=== PATIENT | male | born 1985 | race Caucasian/White ===

== ENCOUNTER 2016-10-31 13:01 | Emergency (ER) | payer BC ==
[2016-10-31 15:09] LABS: Urine Bilirubin Negative (Negative); Urine Glucose Negative (Negative); Urine Nitrite Negative (Negative)
[2016-10-31 16:07] LABS: Hematocrit 48 % (42-52); Hemoglobin 16.5 g/dl (14.0-18.0); Mean Corpuscular HGB Conc 34 g/dl (31-36); Mean Corpuscular Hemoglobin 29 pg (27-31); Mean Corpuscular Volume 85 fL (80-94); Mean Platelet Volume 7 um3 (7.4-10.4); Red Blood Count 5.71 10^6/ul (4.0-5.4); Red Cell Distribution Width 13 % (10.5-15); White Blood Count 10.9 10^3/ul (3.5-10.8)
[2016-10-31 16:36] LABS: ALT 21 U/L (7-52); AST 24 U/L (13-39); Albumin 4.7 g/dL (3.2-5.2); Alkaline Phosphatase 57 U/L (34-104); Anion Gap 9 mmol/L (2-11); BUN/Creatinine Ratio 7.6 (8-20); Blood Urea Nitrogen 8 mg/dL (6-24); CO2 Carbon Dioxide 26 mmol/L (22-32); Calcium 9.6 mg/dL (8.6-10.3); Chloride 102 mmol/L (101-111); EGFR African American 104.6 (>60); EGFR Non-African American 81.3 (>60); Globulin 2.7 g/dL (2-4); Glucose 88 mg/dL (70-100); Lipase 25 U/L (11.0-82.0); Potassium 3.6 mmol/L (3.5-5.0); Sodium 137 mmol/L (133-145); Total Protein 7.4 g/dL (6.4-8.9)
[2016-10-31 17:04] LABS: Alcohol < 10 mg/dL (<10)
--- NOTE | 2016-10-31 19:17 | RAD ---
INDICATION: Left upper quadrant pain COMPARISON: CT abdomen pelvis dated January 25, 2016 with findings consistent with constipation. TECHNIQUE: 2 views the abdomen were obtained. FINDINGS: There are no acute bony or soft tissue abnormalities. A large amount of stool is noted overlying the colon. There are no pathologically dilated loops of bowel. There are no obvious coarse calcifications overlying the expected location of the bilateral collecting systems or ureters. IMPRESSION: IN THE CORRECT CLINICAL SETTING RADIOGRAPHIC FINDINGS COULD BE COMPATIBLE WITH CONSTIPATION.
[2016-10-31 19:48] VITALS: BP 136/80
--- NOTE | 2016-11-01 22:32 | ED ---
Benjamin Sotelo Adam, scribed for Pato Monk MD on 10/31/16 at 1504 . Abdominal Pain/Male - HPI Summary HPI Summary: Pt is a 31 year old male presenting with abdominal pain. He states that the pain is generalized but worse in the LUQ. For the past 2 weeks it has been constant and growing progressively worse. Palpation aggravates the pain. Breathing does not affect the pain. He also states that his stool has been floating for the past 2 weeks. He also c/o upper back pain and itchy skin. He denies fever, sweats, chills, testicular pain, penile discharge, hematuria, blood in the stool, and black stool. He has been moving his bowels regularly in the morning and sometimes in the afternoon as well. Pt has PMHx of interstitial cystitis for 7 years and he presents with redness in his lower abdomen which he states is from using ice to alleviate the pain. He had a colonoscopy done once during which he states that they noticed some inflammation. - History of Current Complaint Chief Complaint: EDAbdPain Stated Complaint: UPPER LT ABD PAIN Time Seen by Provider: 10/31/16 14:36 Hx Obtained From: Patient Onset/Duration: Gradual Onset, Lasting Weeks, Still Present Timing: Constant Severity Initially: Moderate Severity Currently: Moderate Pain Intensity: 4 Pain Scale Used: 0-10 Numeric Location: Discrete At: LUQ Radiates: No Aggravating Factor(s): Other: - Palpation Alleviating Factor(s): Nothing Associated Signs And Symptoms: Positive: Back Pain, Other - Floating stool, itchy skin - Allergies/Home Medications Allergies/Adverse Reactions: Allergies Allergy/AdvReac Type Severity Reaction Status Date / Time Cefaclor [From [facility]] Allergy Unknown Verified 01/25/16 04:23 Reaction Details PMH/Surg Hx/FS Hx/Imm Hx Endocrine/Hematology History: Denies: Hx Diabetes Cardiovascular History: Denies: Hx Congestive Heart Failure, Hx Hypertension History: Denies: Hx Renal Disease Infectious Disease History: No Infectious Disease History: Denies: Traveled Outside the [place] in Last 30 Days - Family History Known Family History: Positive: None - Reviewed and noncontributory - Social History Occupation: Employed Full-time Lives: With Family - Alcohol Use: Occasionally Hx Substance Use: No Substance Use Type: Reports: None Hx Tobacco Use: Yes Smoking Status (MU): Former Smoker Review of Systems Negative: Fever, Chills Negative: Erythema Negative: Sore Throat Negative: Chest Pain Negative: Shortness Of Breath, Cough Positive: Abdominal Pain, Other - Floating stool. Negative: Vomiting, Nausea Negative: dysuria, hematuria Positive: Other - Back pain. Negative: Edema Positive: Other - Itchiness. Negative: Rash Neurological: Other - Negative dizziness All Other Systems Reviewed And Are Negative: Yes Physical Exam - Summary Physical Exam Summary: Constitutional: Well-developed, Well-nourished, Alert. (-) Distressed Skin: Warm, Dry HENT: Normocephalic; Atraumatic Eyes: Conjunctiva normal Neck: Musculoskeletal ROM normal neck. (-) JVD, (-) Stridor, (-) Tracheal deviation Cardio: Rhythm regular, rate normal, Heart sounds normal; Intact distal pulses; The pedal pulses are 2+ and symmetric. Radial pulses are 2+ and symmetric. (-) Murmur Pulmonary/Chest wall: Effort normal. (-) Respiratory distress, (-) Wheezes, (-) Rales Abd: Soft, (-) Tenderness, (-) Distension, (-) Guarding, (-) Rebound Musculoskeletal: (-) Edema Lymph: (-) Cervical adenopathy Neuro: Alert, Oriented x3 Psych: Mood and affect Normal Triage Information Reviewed: Yes Vital Signs On Initial Exam: Initial Vitals Temp Pulse Resp BP Pulse Ox 98.1 F 98 16 117/69 99 10/31/16 13:03 10/31/16 13:03 10/31/16 13:03 10/31/16 13:03 10/31/16 13:03 Vital Signs Reviewed: Yes Diagnostics - Vital Signs Vital Signs Temp Pulse Resp BP Pulse Ox 10/31/16 13:03 98.1 F 98 16 117/69 99 - Laboratory Result Diagrams: 10/31/16 16:00 10/31/16 16:00 Lab Statement: Any lab studies that have been ordered have been reviewed, and results considered in the medical decision making process. - Radiology ABDOMEN X-RAY Radiology Interpretation Completed By: Radiologist - IMPRESSION: IN THE CORRECT CLINICAL SETTING RADIOGRAPHIC FINDINGS COULD BE COMPATIBLE WITH CONSTIPATION. Abdominal Pain Fem Course/Dx - Course Course Of Treatment: No abdominal tenderness, no significant pain. X-ray revealed large stool burden. - Diagnoses Provider Diagnoses: Constipation Discharge - Discharge Plan Condition: Stable Disposition: HOME Prescriptions: Docusate CAP* [Colace Cap*] 100 mg PO BID #60 cap Patient Education Materials: Constipation (ED) Referrals: [facility] [Outside] Additional Instructions: Follow up with [facility]. The documentation as recorded by the Benjamin childress Adam accurately reflects the service I personally performed and the decisions made by , Pato Monk MD.
== END 2016-10-31 19:47 | disposition home or self-care (01) ==
LOC: ED 13:01
DX: K59.00 Constipation, unspecified (principal); R10.12 Left upper quadrant pain; M54.9 Dorsalgia, unspecified; Z87.891 Personal history of nicotine dependence
CPT/HCPCS: 36415; 74000; 80053; 80320; 81003; 83605; 83690; 85025; 99282; G0480

== ENCOUNTER 2017-08-15 10:53 | Day surgery (SDC) | payer BC ==
[~2017-08-15 10:53] MED LIST: Buffered Lidocaine 0.9% SYRIN* 5 ML/SYR SYRINGE INTRADERM ONE; Famotidine IV* 10 MG/ML 2 ML (20 mg) IV ONE; Metoclopramide TAB* 10 MG PO ONE
[2017-08-15] MEDS ORDERED: Metoclopramide TAB* 10 MG ONE (11:11)
[2017-08-15] MEDS ORDERED: Buffered Lidocaine 0.9% SYRIN* 5 ML/SYR SYRINGE ONE (11:11)
[2017-08-15] MEDS ORDERED: Famotidine IV* 10 MG/ML 2 ML (20 mg) ONE (11:11)
[2017-08-15] MEDS ORDERED: Dexamethasone IV* 4 MG/ML 1 ML (4 MG) ONE (13:22)
[2017-08-15] MEDS ORDERED: Ondansetron INJ* 2 MG/ML VIAL ONE (13:22)
[2017-08-15] MEDS ORDERED: Lidocaine 2% PF * 5 ML VIAL ONE (13:22)
[2017-08-15] MEDS ORDERED: Midazolam* 1 MG/ML 10 ML VIAL (10 MG) ONE (13:22)
[2017-08-15] MEDS ORDERED: Mivacurium Chloride* 20 MG/10 ML VIAL IV ONE (13:22)
[2017-08-15] MEDS ORDERED: Propofol* 10 MG/ML 20 ML BTL IV PUSH ONE (13:22)
[2017-08-15] MEDS ORDERED: fentaNYL* 50 MCG/ML 2 ML VIAL (100 MCG VIAL) ONE ×2 (13:22→16:07)
[2017-08-15] MEDS ORDERED: Gelfoam 12-7 ADSORBABL SPONGE* 1 EA SPONGE ONE (13:36)
[2017-08-15] MEDS ORDERED: EPINEPHRINE 1 MG/ML 1 ML VIAL ONE (13:36)
[2017-08-15] MEDS ORDERED: Lidocaine 2% EPI 1:200000 MPF* 20 ML VIAL ONE (13:36)
[2017-08-15] MEDS ORDERED: Methylene Blue 0.5 %* 50 MG/10 ML AMP IV ONE (13:36)
[2017-08-15] MEDS ORDERED: Ofloxacin 0.3% OTIC.SOL* 5 ML BTL ONE (15:13)
[2017-08-15] MEDS ORDERED: Ondansetron INJ* 2 MG/ML VIAL IV PRN (15:20)
[2017-08-15] MEDS ORDERED: fentaNYL* 50 MCG/ML 2 ML VIAL (100 MCG VIAL) IV PRN (15:20)
[2017-08-15] MEDS ORDERED: oxyCODONE/Acetamin 5/325 MG* TAB PO PRN (15:20)
[2017-08-15] MEDS ORDERED: Naloxone* 0.4 MG/ML 1 ML VIAL IV PRN (15:20)
[2017-08-15] MEDS ORDERED: Bacitracin OINTMENT* 0.5% 0.5 oz TUBE ONE (15:35)
[2017-08-15] MEDS ORDERED: oxyCODONE/Acetamin 5/325 MG* TAB ONE (16:48)
[2017-08-15 17:26] VITALS: BP 114/73
--- NOTE | 2017-08-16 02:40 | OP ---
DATE OF OPERATION: 08/15/17 - [facility] DATE OF : 81 SURGEON: Douglas Kirkland MD ANESTHESIOLOGIST: Charbel Bee MD ANESTHESIA: General PRE-OP DIAGNOSIS: Recurrent cholesteatoma, right mastoid and middle ear space. POST-OP DIAGNOSIS: Recurrent cholesteatoma, right mastoid and middle ear space. OPERATIVE PROCEDURE: Canal wall down mastoidectomy and temporalis fascia graft tympanoplasty. BRIEF HISTORY: This 31-year-old with previous history of cholesteatoma underwent a canal wall up procedure and on examination in the office he had recurrence of cholesteatoma and erosion of the lateral wall. He elected for surgical management. DESCRIPTION OF PROCEDURE: The patient was taken to the operating room, general anesthetic was given, the patient was intubated. The ear was then prepped and draped in usual fashion. NIM monitoring for facial nerve monitoring was carried out. Postauricular incision was made, curvilinear incision was created and the periosteum was elevated. Previous mastoid cavity was noted and there was some significant amount of granulation tissue in it. This was removed. The canal wall was then incised. Cholesteatoma was noted to be extruding from the canal wall into the middle ear space. The cholesteatoma was removed. A little small defect of the tympanic membrane was identified. Facial ridge was identified and then subsequently the canal wall was taken down to the facial ridge with a drill. Incudostapedial joint was present and the stapes appeared to be superstructure and appeared to be normal. There had been a previous cartilage graft, which had migrated. I then placed a cartilage graft over the stapes, harvested a temporalis graft and placed the fascia over the cartilage and draped it along the facial ridge and then on to the mastoid as much of coverage as it could, then I secured in place with a small piece of Gelfoam. The postauricular incision was then closed. Meatoplasty was carried out. Then, a small dressing was applied. The patient was awaken and sent to recovery room in stable condition. Instrument and sponge counts were correct. Blood loss minimal. [id number]/[facility] #: [id number] [facility]
== END 2017-08-15 17:28 | disposition home or self-care (01) ==
LOC: OR 10:53
PROVIDERS: ATTEND Otolaryngology
DX: H71.21 Cholesteatoma of mastoid, right ear (principal); R42 Dizziness and giddiness; F90.9 Attention-deficit hyperactivity disorder, unspecified type; G43.909 Migraine, unspecified, not intractable, without status migrainosus; I73.00 Raynaud's syndrome without gangrene
CPT/HCPCS: 88304; A9270-GY; J1100; J2250; J2405; J2704; J3010

== ENCOUNTER 2018-09-13 10:52 | Inpatient (IN) | payer BC ==
[2018-09-13] MEDS: NS 0.9% 1000 ML** 2,000 ML IV ONE ×2 (11:29→12:27)
[2018-09-13 11:43] LABS: ABS Basophils 0.1 10^3/ul (0-0.2); ABS Eosinophils 0.1 10^3/ul (0-0.6); ABS Monocytes 0.8 10^3/ul (0-0.8); ABS Neutrophils 5.1 10^3/ul (1.5-7.7); ABS Nucleated RBC 0 10^3/ul; Eosinophil % 0.8 %; Hematocrit 47 % (42-52); Hemoglobin 15.8 g/dl (14.0-18.0); Lymphocyte % 25.3 %; Mean Corpuscular HGB Conc 34 g/dl (31-36); Mean Corpuscular Hemoglobin 29 pg (27-31); Mean Corpuscular Volume 85 fL (80-94); Mean Platelet Volume 7.1 fL (7.4-10.4); Nucleated Red Blood Cells % 0.1; Platelet Count 300 10^3/ul (150-450); Red Cell Distribution Width 14 % (10.5-15); White Blood Count 8.1 10^3/ul (3.5-10.8)
[2018-09-13 11:52] LABS: Activated Partial Thrombo Time 35.3 seconds (26.0-36.3); INR 1.09 (0.77-1.02)
[2018-09-13 11:59] LABS: Albumin 3.9 g/dL (3.2-5.2); Albumin/Globulin Ratio 1.2 (1-3); BUN/Creatinine Ratio 5.6 (8-20); EGFR African American 95.7 (>60); EGFR Non-African American 79.1 (>60); Globulin 3.2 g/dL (2-4); Potassium 3.6 mmol/L (3.5-5.0); Total Bilirubin 0.8 mg/dL (0.2-1.0); Total Protein 7.1 g/dL (6.4-8.9)
[2018-09-13 12:16] LABS: Influenza A Molecular NEGATIVE (Negative); Influenza B Molecular NEGATIVE (Negative)
[2018-09-13 12:46] LABS: Urine Appearance Clear; Urine Bilirubin Negative (Negative); Urine Blood Negative (Negative); Urine Color Yellow; Urine Glucose Negative (Negative); Urine Ketones Trace (Negative); Urine Nitrite Negative (Negative); Urine Protein Negative (Negative); Urine Specific Gravity 1.004 (1.010-1.030); Urine Urobilinogen Negative (Negative)
[2018-09-13 12:55] LABS: Barbiturates Urine Screen None Detected (None Detect); Benzodiazepine Urine Screen None Detected (None Detect); Urine Cannabinoids Screen None Detected (None Detect)
[2018-09-13 12:55] LABS: C Reactive Protein 26.58 mg/L (<8.01)
[2018-09-13] MEDS ORDERED: Ciprofloxacin 400MG IVPREMIX(* 400 MG/200 ML BAG IVPB ONE (13:20)
[2018-09-13] MEDS ORDERED: Vancomycin(*) 1,250 MG in NS 0.9% 250 ML* 250 ML IVPB ONE (13:20)
[2018-09-13 13:23] LABS: Hepatitis B Surface Antigen Nonreactive (Nonreactive)
[2018-09-13] MEDS ORDERED: Zosyn per Pharmacy* NOTE FOLLOW UP SCH (14:00)
[2018-09-13 14:26] LABS: Hepatitis B Surface AB Not Immune (Immune)
[2018-09-13] MEDS ORDERED: Vancomycin per Pharmacy* NOTE FOLLOW UP SCH (15:00)
[2018-09-13 15:38] LABS: TSH (Thyroid Stimulating Horm) 0.97 mcIU/mL (0.34-5.60)
--- NOTE | 2018-09-13 16:09 | ED ---
HPI Febrile Illness - HPI Summary HPI Summary: Patient is a 32-year-old male who presents to the ED with a 3 week history of fevers, sweats, chills, weakness, feeling of faintness although denies fainting. 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 He states he has been seen twice at urgent care, the first time he was given antihistamine and the second time he was given amoxicillin. He has been on this amoxicillin for 5-7 days (patient unsure.) He endorses a mild cough, urinary symptoms, constipation and mild right-sided flank pain. However, he has a hx of interstitial cystitis, and states his urinary sxs are at baseline. Denies gross hematuria or evidence of obstructive sxs. His temperatures at home are labile with the highest running at 103.6. - History of Current Complaint Chief Complaint: EDFever Time Seen by Provider: 09/13/18 11:06 Hx Obtained From: Patient Onset/Duration: Started Weeks Ago - 3 weeks Timing: Constant Initial Severity: Moderate Current Severity: Moderate Pain Intensity: 0 Pain Scale Used: 0-10 Numeric Aggravating Factors: Nothing Alleviating Factors: Nothing Associated Signs and Symptoms: Negative - Risk Factors Pseudomonas Risk Factors: Negative Serious Bacterial Infection Risk Factors: Negative - Allergy/Home Medications Allergies/Adverse Reactions: Allergies Allergy/AdvReac Type Severity Reaction Status Date / Time cefaclor Allergy Unknown Verified 09/13/18 12:35 Reaction Details Home Medications: Home Medications Amoxicillin/Clavulanate TAB* [Augmentin TAB 875*] 875 mg PO BID 09/13/18 [ History Confirmed 09/13/18] Amphetamine MIXED SALTS TAB* [Adderall TAB*] 15 mg PO DAILY PRN 09/13/18 [ History Confirmed 09/13/18] Hydroxypropyl Cellulose [Lacrisert] 5 mg BOTH EYES BID 09/13/18 [History Confirmed 09/13/18] clonazePAM TAB(*) [KlonoPIN TAB(*)] 0.5 mg PO TID 09/13/18 [History Confirmed ] PMH/Surg Hx/FS Hx/Imm Hx Previously Healthy: Yes Endocrine/Hematology History: Denies: Hx Diabetes Cardiovascular History: Denies: Hx Congestive Heart Failure, Hx Hypertension History: Denies: Hx Renal Disease - Surgical History Surgery Procedure, Year, and Place: SURGERY TO REMOVE RT MASTOID CHOLESTEATOMA [facility]. Cystoscopy. Colonosocopy - Immunization History Hx Pertussis Vaccination: No Immunizations Up to Date: Yes Infectious Disease History: No Infectious Disease History: Denies: Traveled Outside the [place] in Last 30 Days - Family History Known Family History: Positive: None - Reviewed and noncontributory - Social History Occupation: Employed Full-time Lives: With Family Alcohol Use: Occasionally Alcohol Amount: once per month Hx Substance Use: No Substance Use Type: Reports: None Hx Tobacco Use: Yes Smoking Status (MU): Former Smoker Review of Systems Positive: Fever, Chills, Fatigue, Skin Diaphoresis Negative: Blurred Vision, Diplopia Negative: Dental Pain, Sore Throat Negative: Palpitations, Chest Pain Negative: Shortness Of Breath Positive: Other - mild right-sided flank pain Positive: dysuria - patient states this is at baseline, has IC, flank pain - Rt sided Negative: Arthralgia, Myalgia Skin: Negative Neurological: Negative Negative: Headache, Weakness, Paresthesia, Numbness All Other Systems Reviewed And Are Negative: Yes Physical Exam Triage Information Reviewed: Yes Vital Signs On Initial Exam: Initial Vitals Temp Pulse Resp BP Pulse Ox 100.2 F 133 18 127/84 96 09/13/18 10:55 09/13/18 10:55 09/13/18 10:55 09/13/18 10:55 09/13/18 10:55 Vital Signs Reviewed: Yes Appearance: Positive: Ill-Appearing Skin: Positive: Warm, Skin Color Reflects Adequate Perfusion Head/Face: Positive: Normal Head/Face Inspection Eyes: Positive: EOMI, KIKA, Conjunctiva Clear Neck: Positive: No Lymphadenopathy Respiratory/Lung Sounds: Positive: Clear to Auscultation, Breath Sounds Present Cardiovascular: Positive: RRR, Pulses are Symmetrical in both Upper and Lower Extremities Musculoskeletal: Positive: Normal, Strength/ROM Intact Neurological: Positive: Sensory/Motor Intact, Alert, Oriented to Person Place, Time, Speech Normal Psychiatric: Positive: Normal, Affect/Mood Appropriate AVPU Assessment: Alert Diagnostics - Vital Signs Vital Signs Temp Pulse Resp BP Pulse Ox 09/13/18 13:15 19 127/87 09/13/18 13:00 116 18 97 09/13/18 12:45 121 18 145/81 98 09/13/18 12:15 110 17 128/82 98 09/13/18 12:00 112 22 97 09/13/18 11:45 113 21 123/85 99 09/13/18 11:42 115 98 09/13/18 10:55 100.2 F 133 18 127/84 96 - Laboratory Lab Results: Lab Results 09/13/18 09/13/18 09/13/18 Range/Units 11:29 11:29 11:29 WBC 8.1 (3.5-10.8) 10^3/ul RBC 5.50 H (4.00-5.40) 10^6/ul Hgb 15.8 (14.0-18.0) g/dl Hct 47 (42-52) % MCV 85 (80-94) fL MCH 29 (27-31) pg MCHC 34 (31-36) g/dl RDW 14 (10.5-15) % Plt Count 300 (150-450) 10^3/ul MPV 7.1 L (7.4-10.4) fL Neut % (Auto) 63.2 % Lymph % (Auto) 25.3 % [place] % (Auto) 9.7 % Eos % (Auto) 0.8 % Baso % (Auto) 1.0 % Absolute Neuts (auto) 5.1 (1.5-7.7) 10^3/ul Absolute Lymphs (auto) 2.0 (1.0-4.8) 10^3/ul Absolute Monos (auto) 0.8 (0-0.8) 10^3/ul Absolute Eos (auto) 0.1 (0-0.6) 10^3/ul Absolute Basos (auto) 0.1 (0-0.2) 10^3/ul Absolute Nucleated RBC 0 10^3/ul Nucleated RBC % 0.1 ESR Pending INR (Anticoag Therapy) 1.09 H (0.77-1.02) APTT 35.3 (26.0-36.3) seconds Sodium 131 L (135-145) mmol/L Potassium 3.6 (3.5-5.0) mmol/L Chloride 97 L (101-111) mmol/L Carbon Dioxide 24 (22-32) mmol/L Anion Gap 10 (2-11) mmol/L BUN 6 (6-24) mg/dL Creatinine 1.07 (0.67-1.17) mg/dL Est GFR ( Amer) 95.7 (>60) Est GFR (Non-Af Amer) 79.1 (>60) BUN/Creatinine Ratio 5.6 L (8-20) Glucose 118 H (70-100) mg/dL Lactic Acid (0.5-2.0) mmol/L Calcium 9.0 (8.6-10.3) mg/dL Total Bilirubin 0.80 (0.2-1.0) mg/dL AST 83 H (13-39) U/L ALT 99 H (7-52) U/L Alkaline Phosphatase 147 H (34-104) U/L Troponin I 0.00 (<0.04) ng/mL C-Reactive Protein 26.58 H (<8.01) mg/L Total Protein 7.1 (6.4-8.9) g/dL Albumin 3.9 (3.2-5.2) g/dL Globulin 3.2 (2-4) g/dL Albumin/Globulin Ratio 1.2 (1-3) TSH 0.97 (0.34-5.60) mcIU/mL Urine Color Urine Appearance Urine pH (5-9) Ur Specific [place] (1.010-1.030) Urine Protein (Negative) Urine Ketones (Negative) Urine Blood (Negative) Urine Nitrate (Negative) Urine Bilirubin (Negative) Urine Urobilinogen (Negative) Ur Leukocyte Esterase (Negative) Urine Glucose (Negative) Urine Opiates Screen (None Detect) Ur Barbiturates Screen (None Detect) Ur Phencyclidine Scrn (None Detect) Ur Amphetamines Screen (None Detect) U Benzodiazepines Scrn (None Detect) Urine Cocaine Screen (None Detect) U Cannabinoids Screen (None Detect) Hepatitis A IgM Ab (Nonreactive) Hepatitis B Antibody (Immune) Hep Bs Antigen (Nonreactive) Hep Bs Antibody, Quant (>12) mIU/mL Hep B Core IgM Ab (Nonreactive) Hepatitis C Antibody Hepatitis C Ab Index Influenza A (Rapid) (Negative) Influenza B (Rapid) (Negative) Group A Strep Rapid (Negative) 09/13/18 09/13/18 09/13/18 Range/Units 11:29 11:29 11:56 WBC (3.5-10.8) 10^3/ul RBC (4.00-5.40) 10^6/ul Hgb (14.0-18.0) g/dl Hct (42-52) % MCV (80-94) fL MCH (27-31) pg MCHC (31-36) g/dl RDW (10.5-15) % Plt Count (150-450) 10^3/ul MPV (7.4-10.4) fL Neut % (Auto) % Lymph % (Auto) % [place] % (Auto) % Eos % (Auto) % Baso % (Auto) % Absolute Neuts (auto) (1.5-7.7) 10^3/ul Absolute Lymphs (auto) (1.0-4.8) 10^3/ul Absolute Monos (auto) (0-0.8) 10^3/ul Absolute Eos (auto) (0-0.6) 10^3/ul Absolute Basos (auto) (0-0.2) 10^3/ul Absolute Nucleated RBC 10^3/ul Nucleated RBC % ESR INR (Anticoag Therapy) (0.77-1.02) APTT (26.0-36.3) seconds Sodium (135-145) mmol/L Potassium (3.5-5.0) mmol/L Chloride (101-111) mmol/L Carbon Dioxide (22-32) mmol/L Anion Gap (2-11) mmol/L BUN (6-24) mg/dL Creatinine (0.67-1.17) mg/dL Est GFR ( Amer) (>60) Est GFR (Non-Af Amer) (>60) BUN/Creatinine Ratio (8-20) Glucose (70-100) mg/dL Lactic Acid 1.1 (0.5-2.0) mmol/L Calcium (8.6-10.3) mg/dL Total Bilirubin (0.2-1.0) mg/dL AST (13-39) U/L ALT (7-52) U/L Alkaline Phosphatase (34-104) U/L Troponin I (<0.04) ng/mL C-Reactive Protein (<8.01) mg/L Total Protein (6.4-8.9) g/dL Albumin (3.2-5.2) g/dL Globulin (2-4) g/dL Albumin/Globulin Ratio (1-3) TSH (0.34-5.60) mcIU/mL Urine Color Urine Appearance Urine pH (5-9) Ur Specific [place] (1.010-1.030) Urine Protein (Negative) Urine Ketones (Negative) Urine Blood (Negative) Urine Nitrate (Negative) Urine Bilirubin (Negative) Urine Urobilinogen (Negative) Ur Leukocyte Esterase (Negative) Urine Glucose (Negative) Urine Opiates Screen (None Detect) Ur Barbiturates Screen (None Detect) Ur Phencyclidine Scrn (None Detect) Ur Amphetamines Screen (None Detect) U Benzodiazepines Scrn (None Detect) Urine Cocaine Screen (None Detect) U Cannabinoids Screen (None Detect) Hepatitis A IgM Ab Nonreactive (Nonreactive) Hepatitis B Antibody Not immune A (Immune) Hep Bs Antigen Nonreactive (Nonreactive) Hep Bs Antibody, Quant 4.37 (>12) mIU/mL Hep B Core IgM Ab Nonreactive (Nonreactive) Hepatitis C Antibody Pending Hepatitis C Ab Index Pending Influenza A (Rapid) (Negative) Influenza B (Rapid) (Negative) Group A Strep Rapid Negative (Negative) 09/13/18 09/13/18 09/13/18 Range/Units 12:04 12:31 12:31 WBC (3.5-10.8) 10^3/ul RBC (4.00-5.40) 10^6/ul Hgb (14.0-18.0) g/dl Hct (42-52) % MCV (80-94) fL MCH (27-31) pg MCHC (31-36) g/dl RDW (10.5-15) % Plt Count (150-450) 10^3/ul MPV (7.4-10.4) fL Neut % (Auto) % Lymph % (Auto) % [place] % (Auto) % Eos % (Auto) % Baso % (Auto) % Absolute Neuts (auto) (1.5-7.7) 10^3/ul Absolute Lymphs (auto) (1.0-4.8) 10^3/ul Absolute Monos (auto) (0-0.8) 10^3/ul Absolute Eos (auto) (0-0.6) 10^3/ul Absolute Basos (auto) (0-0.2) 10^3/ul Absolute Nucleated RBC 10^3/ul Nucleated RBC % ESR INR (Anticoag Therapy) (0.77-1.02) APTT (26.0-36.3) seconds Sodium (135-145) mmol/L Potassium (3.5-5.0) mmol/L Chloride (101-111) mmol/L Carbon Dioxide (22-32) mmol/L Anion Gap (2-11) mmol/L BUN (6-24) mg/dL Creatinine (0.67-1.17) mg/dL Est GFR ( Amer) (>60) Est GFR (Non-Af Amer) (>60) BUN/Creatinine Ratio (8-20) Glucose (70-100) mg/dL Lactic Acid (0.5-2.0) mmol/L Calcium (8.6-10.3) mg/dL Total Bilirubin (0.2-1.0) mg/dL AST (13-39) U/L ALT (7-52) U/L Alkaline Phosphatase (34-104) U/L Troponin I (<0.04) ng/mL C-Reactive Protein (<8.01) mg/L Total Protein (6.4-8.9) g/dL Albumin (3.2-5.2) g/dL Globulin (2-4) g/dL Albumin/Globulin Ratio (1-3) TSH (0.34-5.60) mcIU/mL Urine Color Yellow Urine Appearance Clear Urine pH 6.0 (5-9) Ur Specific [place] 1.004 L (1.010-1.030) Urine Protein Negative (Negative) Urine Ketones Trace A (Negative) Urine Blood Negative (Negative) Urine Nitrate Negative (Negative) Urine Bilirubin Negative (Negative) Urine Urobilinogen Negative (Negative) Ur Leukocyte Esterase Negative (Negative) Urine Glucose Negative (Negative) Urine Opiates Screen None detected (None Detect) Ur Barbiturates Screen None detected (None Detect) Ur Phencyclidine Scrn None detected (None Detect) Ur Amphetamines Screen None detected (None Detect) U Benzodiazepines Scrn None detected (None Detect) Urine Cocaine Screen None detected (None Detect) U Cannabinoids Screen None detected (None Detect) Hepatitis A IgM Ab (Nonreactive) Hepatitis B Antibody (Immune) Hep Bs Antigen (Nonreactive) Hep Bs Antibody, Quant (>12) mIU/mL Hep B Core IgM Ab (Nonreactive) Hepatitis C Antibody Hepatitis C Ab Index Influenza A (Rapid) Negative (Negative) Influenza B (Rapid) Negative (Negative) Group A Strep Rapid (Negative) Result Diagrams: 09/13/18 11:29 09/13/18 11:29 Lab Statement: Any lab studies that have been ordered have been reviewed, and results considered in the medical decision making process. Course/Dx - Course Course Of Treatment: During the course of treatment, the patient is evaluated for 3 weeks of persistent fevers. He endorses having a fever highest at 13.9. 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 While he is in the ED septic protocol was initiated based on vital signs. Vital signs 100.2, tachycardia at 133. He is diaphoretic and pale on arrival. Lungs are CTA, RRR. There is no CVA tenderness bilaterally. Abdomen soft and nontender. No edema noted in the bilateral upper lower extremities. No lymphadenopathy. Ciprofloxacin, vancomycin and 2 L fluids given in the ED. Patient is allergic to Cipro course of Zosyn not given. Antibiotics based on fever of unknown origin with a penicillin allergy. Patient states he takes Klonopin and trazodone, but denies other medications. Labs obtained and are all WNL except for a slightly elevated transaminase. UA obtained and is WNL. Patient does endorse dysuria, however this is at baseline, has interstitial cystitis. Chest x-ray obtained and is WNL. Influenza negative. Tox screen negative. Discussed case with Dr. Boyle who recently saw him as an outpatient this morning. Dr. Boyle will admit for further evaluation. - Febrile Illness Differential Diagnoses: Fever of Unknown Origin - Diagnoses Provider Diagnoses: Fever - Provider Notifications Discussed Care Of Patient With: Evangelista Boyle Instructed by Provider To: Admit As Inpatient - Critical Care Time Critical Care Time: 30-74 min Discharge - Sign-Out/Discharge Documenting (check all that apply): Patient Departure All imaging exams completed and their final reports reviewed: No Patient Received Moderate/Deep Sedation with Procedure: No - Discharge Plan Condition: Fair Disposition: ADMITTED TO [facility] - Billing Disposition and Condition Condition: FAIR Disposition: Admitted to [facility]
[2018-09-13] MEDS: Ibuprofen TAB* 400 MG PO PRN (17:05)
[2018-09-13] MEDS: NS 0.9% 1000 ML** 1,000 ML IV SCH (17:05)
[2018-09-13] MEDS: clonazePAM TAB(*) 0.5 MG PO SCH ×2 (17:05→23:27)
--- NOTE | 2018-09-13 18:31 | CONSULT ---
Consult Consult: Mr. Sanchez is a 32 year old man with a long standing interstitial cystitis, atypical Raynaud's and seronegative Sjogren's (negative lip biopsy, negative CRUZ in 2013 and negative SSA/SSB) who is admitted with a prolonged febrile illness refractory to out patient antiibiotics. Workup is notable for elevated inflammatory markers and elevated alk phos levels and elevated transaminases. The acuteness of his presentation favors an underlying infectious etiology but a flare of a connective tissue disorder could be considered. We will follow up serologies that were ordered. Would check an abdominal US to evaluate his elevated alk phos. Consider an ID evaluation. Will avoid steroids until his diagnosis can be clarified. Continue supportive care, and IV Vancomycin and fluids.
[2018-09-13] MEDS ORDERED: Piperacillin/Tazobac ADVAN(*) 3.375 GM in NS 0.9% 100 ML* 100 ML IVPB ONE (19:00)
[2018-09-13] MEDS ORDERED: Iohexol 350* (CONTRAST) 500 ML MDV IV ONE (19:26)
[2018-09-13 20:04] LABS: Creatine Kinase 66 U/L (10-223)
[2018-09-13 20:31] LABS: Rheumatoid Factor < 10 IU/mL (<15)
--- NOTE | 2018-09-13 21:11 | HP ---
HISTORY AND PHYSICAL: DATE OF ADMISSION: 09/13/18 ADMITTING PROVIDER: Evangelista Boyle M.D. PRIMARY CARE PROVIDER: None currently, Just established with [facility] today where Evangelista Boyle M.D. referred him to the emergency room for further evaluation. PREVIOUS PHARMACEUTICAL ASSISTANT: Dr. Medellin. CHIEF COMPLAINT: Three weeks of high fevers; lightheadedness, dizziness; fatigue; occasional right flank pain; semi-productive cough. HISTORY OF PRESENT ILLNESS: Jaret Sanchez is a 32-year-old male with past medical history of interstitial cystitis, Raynaud syndrome, chronic bone pains, ADHD, previous concern for seronegative Sjogren syndrome and had been on Plaquenil for about 4 years, but stopped between 18 and 24 months ago. For the last 3 weeks, he has had high fevers up to 103.6 initially. He initially thought he got the flu, denied worse muscle aches. He gets frequent headaches at the end of the day of work, but he started to wake up with throbbing posterior headaches. He would frequently get dizzy and almost lose balance. He had to cancel 3 of his classes. He went to [facility] approximately 15 days ago and got an antihistamine, which did not relieve his symptoms. He was taking ibuprofen or Tylenol prn, and seems like his fevers always would return or worsen at night. Seven days ago, he returned to [facility]. He got chest x-ray, which reportedly was without concern and they gave him benzonatate for his cough and Augmentin. However his symptoms have not improved. He developed some mild pain on his left ear tragus about 1 week ago, but denies any inner ear pain or discharge. For 1 day, he felt perfectly fine all day, but this a solitary occurrence. Last night his fever again hit 103 and he almost came to the emergency room. Today, he visited the [facility] for the first time and Dr. Boyle sent him for further evaluation in the emergency room given his heart rate there was 120 and he had a fever of 101.2, looked generally unwell despite completing nearly 7 days of Augmentin. He gave the additional history that he had a cholesteatoma surgery with Dr. Kirkland on the right ear back in July 2017 and then in the interim , he has been treated with ofloxacin eardrops twice once around January 2018 and then again a couple of months later. He also attests that he woke up with some neck stiffness this morning for the first time, but denies pain. In the emergency room, his pulse was in the 130s, temperature was 100.2. Initial workup revealed no leukocytosis, some mild transaminitis elevations with AST 83 , ALT 99, alk phos 147. His CRP is 26.6. His urinalysis has returned with just trace ketones and specific gravity 1.004. He had attested that he had some increased frequency from his usual high frequency baseline with the interstitial cystitis - he had been needing to urinate every "minute" a few nights ago. His influenza rapid swab and group A strep throat swab were negative. His hepatitis A and B has been nonreactive. Hepatitis C is pending. Blood cultures were obtained. He had a chest x-ray, which showed no infiltrates and was referred to hospitalist service for fever and sepsis of unknown origin. I have also placed a call out to Dr. Medellin for consultation with concern that his fevers may be related to progression of a connective tissue disorder, which we do not have the full evaluation from his previous providers, which include initially Dr. Kadeem Combs of [place], [place] at [phone]. He then saw Dr. Medellin and then transferred his care to Dr. Chavez Edward at [phone], [place], [place]. Additional vasculitis and connective tissue workup have been ordered. He was given 2 L of normal saline bolus, but was still tachycardic in the 120s. PAST MEDICAL HISTORY: Raynaud syndrome; interstitial cystitis; ADHD; previous provider concern for seronegative Sjogren's syndrome, but he is currently of the opinion that he did not have that condition. He has had a lip biopsy previously, I think in [place]; chronic joint/bone pains. PAST SURGICAL HISTORY: Includes a canal wall down mastoidectomy of the right side for recurrent cholesteatoma with Dr. Kirkland in July 2017 along with temporalis fascia graft tympanoplasty. CURRENT MEDICATIONS: Include: 1. Adderall 15 mg p.o. daily p.r.n. (though he has stopped taking this for the last week). 2. Lacrisert (hydroxypropyl cellulose) 5 mg both eyes b.i.d. 3. Klonopin 0.5 mg p.o. t.i.d., mostly for his interstitial cystitis. 4. Augmentin 875 mg p.o. b.i.d. (for approximately 7 days). ALLERGIES: CEFACLOR (reaction unknown, as infant) FAMILY HISTORY: His mother is healthy and alive. His father is healthy, alive , has some skin rashes. His aunt with diabetes and colon cancer. SOCIAL HISTORY: The patient is a nonsmoker other than a few trials in college. 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 He denies current drug use. Formerly, he had experimented with marijuana back in college. His medical surrogate is his , Petrona Sanchez. He desires to be a full code. PHYSICAL EXAMINATION GENERAL APPEARANCE: Unwell appearing. He has some delayed responses and hazy timelines. VITAL SIGNS: Initially at [facility], his temperature was 101.2, blood pressure 118/80, heart rate 120. Here his RR 17, Sat 97% on RA. HEENT: Normocephalic, atraumatic. Pupils are equally round and reactive to light. Extraocular motions intact. No scleral icterus. No oropharynx lesions. Left tympanic membrane cannot be visualized secondary to cerumen. His right had TM had good cone of light and anatomic features. No effusions were appreciated. NECK: He had no neck stiffness, negative Brudzinski's and Kernig's. LUNGS: Clear to auscultation bilaterally with no wheezing, rales or rhonchi. CARDIOVASCULAR: Tachycardic. No murmurs, rubs or gallops. ABDOMEN: Soft, nontender, nondistended. EXTREMITIES: Warm and well perfused. No peripheral edema. SKIN: He has some erythema over his suprapubic area secondary to chronic ice use. He has some faint maculopapules on his bilateral lateral upper thighs that itch during the winter time. Nonerythematous and nontender. NEUROLOGIC: Cranial nerves II through XII are intact. Sexton Helper strength intact. Hip flexion intact. DIAGNOSTIC STUDIES/LAB DATA: White count 8.1, hemoglobin 15.8, hematocrit 47, platelets 300, INR 1.09, ESR pending. Sodium 131, potassium 3.6, chloride 97, carbon dioxide 24, BUN 6, creatinine 1.07, glucose 118, lactic acid 1.1 and repeat is 1.1, calcium 9.0, total bilirubin 0.80, AST 83, ALT 99, alk phos 147, troponin 0.00, CRP 26.58, TSH 0.97. Urinalysis within normal limits except for low specific gravity 1.004 and trace ketones. Toxicology was negative. Serology: Hepatitis A IgM antibody was nonreactive. Hepatitis B antibody was nonimmune. B surface antigen nonreactive. B core IgM antibody nonreactive. Hepatitis C is pending. Influenza A and B rapids were negative. Group A strep was negative. Imaging: His chest x-ray was without acute cardiopulmonary process. His EKG demonstrated sinus tachycardia at a heart rate of 128. Q waves in II, III, aVF ; T wave inversions in II, III, aVF; normal axis; no ST elevations, consideration for right ventricular hypertrophy with R and R pattern in V1. ASSESSMENT AND PLAN: Jaret Sanchez is a 32-year-old male with a past medical history of Raynaud's, previous concern for seronegative Sjogren's, interstitial cystitis, ADHD, who presents with 3 weeks of intermittent spiking high fevers to 103 that have continued despite 7 days of Augmentin as an outpatient along; with tachycardia as high as in the 130s here, lightheadedness, and generally unwell appearing. He was admitted for sepsis and fevers of unknown origin. There has not been a source identified yet. Blood cultures have been obtained. Sepsis fluid bolus given. We will get sputum culture if productive cough. We will get MRSA swab. I am putting him empirically on vancomycin and Zosyn, and I have consulted Dr. Medellin to consider connective tissue etiologies for the fevers with no clear infectious sources at this point in time. ESR is pending, unfortunately the analyzer seems to recently been broken. I have added CRUZ, antidouble-stranded DNA, ANCA panel for vasculitis, complements C3, C4, CH50, extranuclear antigen to evaluate for mixed connective tissue disease, and will follow up with the hepatitis C studies. Could consider, if fevers continue on antibiotics, additional exams of the chest and lung. I am going to add on a D- dimer given the Q waves inferiorly along with T-wave inversion, tachycardia and some occasional shortness of breath, may need to rule out a pulmonary embolism. Of note, he is status post 1 dose of ciprofloxacin in the emergency room. For his chronic medical condition and continuing his Klonopin for his interstitial cystitis, his artificial tears, holding his Adderall, which he has been holding at home. I will put him on DVT prophylaxis with heparin 5000 t.i.d., Tylenol p.r.n. for pain or fevers along with ibuprofen which he sometimes takes for pain. He is a full code. Medical surrogate is Petrona Sanchez. He can eat a regular unrestricted diet. [id number]/[facility] #: [id number] MTDD
--- NOTE | 2018-09-13 21:20 | CONS ---
CONSULTATION REPORT: DATE OF CONSULT: 09/13/18 CONSULTING PHYSICIAN: Dr. Evangelista Boyle. REASON FOR CONSULT: Evaluate for flare of connective tissue disorder. HISTORY OF PRESENT ILLNESS: Mr. Sanchez is a 32-year-old male with a longstanding history of probable seronegative Sjogren's syndrome, who was admitted with a febrile illness which has persisted over the last 3 weeks despite a course of outpatient antibiotics. I have seen him only briefly twice back in 2016 and none since then. He did note that he has been on Plaquenil in the past, but stopped it about a year or two ago. More recently, he has had some fevers that have been high, especially towards the end of the day, but when they spike, they do not always return to a normal baseline state. He has also had sweating and chills and he has ongoing chronic rashes which are along the flank region as well as a history of Raynaud syndrome without color changes. His more recent symptoms included fevers as noted above with a feeling of weakness. 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 He has been seen twice at the urgent care and was felt initially to have underlying infection for which he was given amoxicillin. However, his symptoms have persisted. He also noted he has had a mild cough, some urinary symptoms and of note, he does have a history of interstitial cystitis and he has also had some constipation and mild right-sided flank pain. Of note, he was also found to have benign liver nodules in the recent past. He does not have any low back pain that is out of proportion to his other discomfort. He denies any blood in the urine or other obstructive symptoms. However, he has continued to have fevers. PAST MEDICAL HISTORY: Notable for Sjogren's syndrome and I had seen him in July 2015 as well as September. In terms of his prior rheumatologic history, he does have a history of possible Sjogren's syndrome with possible myositis and Raynaud's as well too; however there is some question as to what underlying connective tissue disease is present as his CRUZ and SSA and SSB antibodies were negative in the past and his lip biopsy was negative; indeed it appears that he was advised to stop Plaquenil some time ago, which he has done. He had been on Plaquenil in the past and for his dry eyes, he had been on Restasis. The Klonopin had helped his interstitial cystitis-type symptoms. He has had chronic discomfort and other symptoms related to his interstitial cystitis, for which he has tried TENS unit therapy. He also has a remote history of hip pain , but this has not been recent. Past medical history is also notable for cystitis. MEDICATIONS: Home medications include: 1. Amoxicillin clavulanate 875 mg twice daily. 2. Currently, he is on vancomycin. 3. He is also on amphetamine. 4. Adderall tablet 15 mg as needed. 5. Hydroxypropyl cellulose (Lacrisert). 6. Clonazepam 0.5 mg t.i.d. ALLERGIES: No known drug allergies. FAMILY HISTORY: Negative for acute rheumatic conditions. He has had no recent travel history. He denies any recent renal disease. He denies any congestive heart failure, hypertension, and no diabetes. 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 He has never smoked. Denies any alcohol use. He does exercise when he is able to. REVIEW OF SYSTEMS: He denies dehydration, but he has had weight fluctuations in the past. Eyes: Denies any ocular discharge or redness or other disturbance. ENT: He has had a dry mouth. He has been on the secretagogue in the past. Cardiac: Denies chest wall pain or shortness of breath. Respiratory : Denies acute cough or congestion. GI: He has had some loose stools, but more recently constipation. He recalled that he had a colonoscopy in the past with no definite colitis. Musculoskeletal: Denies joint swelling. Skin: He has had a chronic exanthem in the sides of his thighs and a history of Raynaud' s which manifests his pain rather than triphasic color changes. He denies any other psoriatic nail changes. Neurologic: He denies any difficulty with balance. He has generally been weak since he has had the fevers. Psychiatric: No acute depression. PHYSICAL EXAM: His blood pressure is 127/84, pulse ox 96%, respirations of 18, temperature of 100.2. General: He is pleasant, conversive, able to sit up and follow commands, and oriented. HEENT exam: Normocephalic, atraumatic. He had a mask on. No scleral icterus. Lungs: Clear to auscultation bilaterally. : No CVA tenderness. Cardiovascular: Regular rate and rhythm. Normal S1 and S2. No S3 or S4. Abdomen: Soft, nontender, nondistended. He did have a pack over the right and left lower quadrants where he has had chronic interstitial cystitis. Motor strength was 5/5 in the upper and lower extremities and he had no synovitis. Neurologic: Exam is nonfocal. Skin: He has mild papular exanthem which he noted as chronic which is along the sides of his thighs. Lymph: No adenopathy. DIAGNOSTIC STUDIES/LAB DATA: I had ordered labs in 2016 which he has still not had. More recently, however, he has had a white count that was normal. Sed rate is pending, but his hemoglobin is 15.8. His sodium is 131. Glucose of 118. ALT of 99, AST of 83, alk phos of 147. UA showed trace ketones. INR of 1.09. C- reactive protein of 26.58 with a followup ESR of 105 with a TSH of 0.97. ASSESSMENT AND PLAN: Mr. 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 In terms of his symptoms, I agree with doing blood cultures, consider Infectious Disease evaluation. In regards to his elevated alk phos and transaminases, consider checking a hepatitis panel as well as mitochondrial antibodies and consider checking abdominal sonogram. With his history of connective tissue disease, he has a risk for conversion or transformation to an underlying another connective tissue disorder and I would like to evaluate for the possibility of other conditions such as lupus or Still' s disease. We will check the serologies below. If he continues to be symptomatic and antibiotics do not completely resolve his symptoms and we are fairly comfortable that an infection has been ruled out and if he continues to have fevers of unclear etiology and his serologies are supporting a connective tissue disease, we should consider a trial of corticosteroids such as Solu- Medrol 60 mg daily IV. However, first we need to make sure that an infectious process has been ruled out given the acuteness of his symptoms. Continue supportive care including antibiotics and as noted above, consider an ID evaluation. I will also check his double-stranded DNA complements and ANCA level. We will continue to follow. TIME SPENT: Time spent was 60 minutes with greater than 50% of the time spent counseling the patient and coordinating care. [id number]/[facility] #: [id number] OSIRIS
[2018-09-13] MEDS: Heparin VIAL(*) 5000 UNITS/ML VIAL (FIVE THOUSAND) SUBCUT SCH (21:27)
--- NOTE | 2018-09-13 21:28 | HP ---
HISTORY AND PHYSICAL: DATE OF ADMISSION: 09/13/18 ADDENDUM: This addendum contains summary of results from his previous serological workup for connective tissue diseases as forwarded from Office Dr. Garret Quan back in [address] Medellin; available on [employer] In summary (and of note this is not complete): 06/19/12 SSA - negative. SSB - negative. Rheumatoid factor - negative. Garcia ( MEERA) - negative. 09/03/12 SPEP - negative. HLA-B27 - negative. CRUZ - negative. Cardiolipin IgG and IgA - negative. DRVVT - negative. 09/13/12 Salivary gland biopsy of the lip on without evidence of Sjogren disease. 01/27/13 ESR 10. CRUZ - negative. 02/11/14 CRUZ - negative. ESR - negative. Also per these reports, he has had a colonoscopy with negative biopsy. He has undergone MRI and EMG studies. He had followed up with the [facility] for 2nd opinion. [id number]/[facility] #: [id number] [facility] MEDICAL CENTERVeronika
[2018-09-13] MEDS ORDERED: traZODone TAB* 50 MG TAB PO ONE (21:45)
[2018-09-13] MEDS: Artificial Tear OPHTH.OINT* 3.5 GM BOTH EYES SCH (23:25)
[2018-09-13] MEDS: Vancomycin(*) 1,000 MG in NS 0.9% 250 ML* 250 ML IVPB SCH (23:27)
[2018-09-14] MEDS: Ibuprofen TAB* 400 MG PO PRN ×2 (01:06→15:26)
[2018-09-14] MEDS: ZOSYN 3.375 GM Q8H per EXTENDED INFUSION IVPB SCH ×4 (01:41→14:11)
[2018-09-14] MEDS: Vancomycin(*) 1,000 MG in NS 0.9% 250 ML* 250 ML IVPB SCH ×2 (04:27→09:38)
[2018-09-14] MEDS: Acetaminophen TAB* 325 MG PO PRN (04:48)
[2018-09-14] MEDS: Heparin VIAL(*) 5000 UNITS/ML VIAL (FIVE THOUSAND) SUBCUT SCH ×3 (05:27→22:54)
[2018-09-14 07:18] LABS: Erythrocyte Sed Rate 8 mm/Hr (0-15)
[2018-09-14 07:56] LABS: Albumin 3.1 g/dL (3.2-5.2); Albumin/Globulin Ratio 1.1 (1-3); BUN/Creatinine Ratio 5.8 (8-20); Calcium 8.1 mg/dL (8.6-10.3); EGFR Non-African American 82.7 (>60); Globulin 2.8 g/dL (2-4); Indirect Bilirubin 0.6 mg/dL (0.3-1.0); Potassium 3.9 mmol/L (3.5-5.0); Total Bilirubin 0.8 mg/dL (0.2-1.0); Total Protein 5.9 g/dL (6.4-8.9)
[2018-09-14 08:50] LABS: Hematocrit 42 % (42-52); Hemoglobin 14.4 g/dl (14.0-18.0); Mean Corpuscular HGB Conc 34 g/dl (31-36); Mean Corpuscular Hemoglobin 29 pg (27-31); Mean Corpuscular Volume 85 fL (80-94); Mean Platelet Volume 7.6 fL (7.4-10.4); Platelet Count 255 10^3/ul (150-450); Red Blood Count 4.98 10^6/ul (4.00-5.40); Red Cell Distribution Width 14 % (10.5-15); White Blood Count 5.8 10^3/ul (3.5-10.8)
[2018-09-14 09:36] LABS: ABS Basophils 0.1 10^3/ul (0-0.2); ABS Eosinophils 0.2 10^3/ul (0-0.6); ABS Lymphocytes 2.2 10^3/ul (1.0-4.8); ABS Monocytes 0.6 10^3/ul (0-0.8); ABS Neutrophils 2.7 10^3/ul (1.5-7.7)
[2018-09-14] MEDS: clonazePAM TAB(*) 0.5 MG PO SCH ×3 (09:38→22:53)
[2018-09-14] MEDS: Artificial Tear OPHTH.OINT* 3.5 GM BOTH EYES SCH ×2 (09:39→22:53)
[2018-09-14 09:40] LABS: ABS Neutrophils 3.3 10^3/ul (1.5-7.7); Immature Granulocytes 1 % (0-9); Lymphocytes % 22 %; Monocytes % 8 %; Neutrophil % 56 %; Variant Lymph % 9 % (0-6)
[2018-09-14 09:41] LABS: ABS Eosinophils 0.2 10^3/ul (0-0.6)
--- NOTE | 2018-09-14 10:55 | PN ---
Subjective Date of Service: 09/14/18 Interval History: Mr. Sanchez states that he is having some lower abdominal pain consistent with his history of interstitial cystitis. He notes that for the past three weeks he has had fevers and chills at night only so he is not surprised that he is feeling reasonably well during the day. He denies nausea, chest pain, or SOB. He notes a very mild sore throat and some sinus fullness. Objective Active Medications: Acetaminophen (Tylenol Tab*) 650 mg PO Q6H PRN Artificial Tears (Lacrilube Oint*) 5 applic BOTH EYES BID SHYANNE Clonazepam (Klonopin Tab(*)) 0.5 mg PO TID SHYANNE Heparin Sodium (Porcine) (Heparin Vial(*)) 5,000 units SUBCUT Q8HR SHYANNE Sodium Chloride (Ns 0.9% 1000 Ml) 1,000 mls @ 100 mls/hr IV PER RATE SHYANNE Vancomycin HCl 1,000 mg/ (Sodium Chloride) 250 mls @ 166.667 mls/hr IVPB Q6H SHYANNE Piperacillin Sod/Tazobactam (Sod 3.375 gm/ Sodium Chloride) 100 mls @ 25 mls/ hr IVPB Q8H SHYANNE Ibuprofen (Motrin Tab*) 400 mg PO Q6H PRN Pharmacy Consult (Zosyn Per Pharmacy*) 1 note FOLLOW UP .ZOSYN PER PHARMACY [facility] Pharmacy Consult (Vancomycin Per Pharmacy*) 1 note FOLLOW UP .VANC PER PHARMACY [facility] Pharmacy Profile Note (Vancomycin Trough Check) 1 note FOLLOW UP ONCE ONE Vital Signs: Temp Pulse Resp BP Pulse Ox 97.2 F 87 20 105/63 99 09/14/18 09:50 09/14/18 09:50 09/14/18 09:50 09/14/18 09:50 09/14/18 09:50 Oxygen Devices in Use Now: None Appearance: Male lying in bed in NAD Eyes: No Scleral Icterus Ears/Nose/Mouth/Throat: Mucous Membranes Moist Neck: NL Appearance and Movements; NL JVP Respiratory: Symmetrical Chest Expansion and Respiratory Effort, Clear to Auscultation Cardiovascular: NL Sounds; No Murmurs; No JVD, No Edema Abdominal: NL Sounds; No Tenderness; No Distention Extremities: No Edema Skin: No Rash or Ulcers Neurological: Alert and Oriented x 3, NL Muscle Strength and Tone Nutrition: Taking PO's Result Diagrams: 09/14/18 07:17 09/14/18 07:17 Additional Lab and Data: . Microbiology and Other Data: . Assess/Plan/Problems-Billing Assessment: Mr. Sanchez is a 32 yo M with a PMH of raynauds, report of sjogren's who was admitted on 09/13/18 with concern for fever and tachycardia and concern for sepsis of unknown etiology - Patient Problems (1) Sepsis Comment: - Tmax 101.5, tachycardia resolving. No leukocytosis. ESR 8. CRP 26. - UA negative. LFTs mildly elevated. CT chest/abd/pelvis and GB US negative. ESR normal and CRP minimally elevated. Flu swab negative - Appreciate consult from Dr. Medellin, follow labs but no clear evidence of flare of connective tissue disease. - ? viral illness, given negative workup will stop vanco and zosyn and monitor closely (2) Anxiety Comment: - With interstitial cystitis - Continue clonazepam (3) DVT prophylaxis Comment: - Heparin SQ (4) Full code status Comment: Status and Disposition: Inpatient
[2018-09-14] MEDS: NS 0.9% 1000 ML** 1,000 ML IV SCH ×2 (11:10→22:44)
--- NOTE | 2018-09-14 11:33 | PN ---
Subjective - Subjective Date of Service: 09/14/18 - fever in the setting of a connective tissue disease History: No acute complaints. Continues to have periodic spiking fevers. He denied joint pain or swelling. Recent studies noted. Active Problems: Active Problems Anxiety (Acute) F41.9 - With interstitial cystitis - Continue clonazepam DVT prophylaxis (Acute) [id number] - Heparin SQ Full code status (Acute) Z78.9 Sepsis (Acute) - Tmax 101.5, tachycardia resolving. No leukocytosis. ESR 8. CRP 26. - UA negative. LFTs mildly elevated. CT chest/abd/pelvis and GB US negative. ESR normal and CRP minimally elevated. Flu swab negative - Appreciate consult from Dr. Medellin, follow labs but no clear evidence of flare of connective tissue disease. - ? viral illness, given negative workup will stop vanco and zosyn and monitor closely Current Medications: Current Medications Acetaminophen (Tylenol Tab*) 650 mg PO Q6H PRN PRN Reason: FEVER/PAIN Last Admin: 09/14/18 04:48 Dose: 650 mg Artificial Tears (Lacrilube Oint*) 5 applic BOTH EYES BID [facility] Last Admin: 09/14/18 09:39 Dose: Not Given Clonazepam (Klonopin Tab(*)) 0.5 mg PO TID [facility] Last Admin: 09/14/18 09:38 Dose: 0.5 mg Heparin Sodium (Porcine) (Heparin Vial(*)) 5,000 units SUBCUT Q8HR [facility] Last Admin: 09/14/18 05:27 Dose: Not Given Sodium Chloride (Ns 0.9% 1000 Ml) 1,000 mls @ 100 mls/hr IV PER RATE [facility] Last Admin: 09/14/18 11:10 Dose: 100 mls/hr Ibuprofen (Motrin Tab*) 400 mg PO Q6H PRN PRN Reason: PAIN Last Admin: 09/14/18 01:06 Dose: 400 mg - Review of Systems Constitutional Symptoms: Yes: Fatigue, Fever, No: Weight Gain, Unexplained Falls Dermatology: Rash: Yes - Unchanged mild papular exanthem which is chronic HEENT: No Normal Eyes: Positive: Normal Thyroid: Positive: Normal Cardiology: Positive: Normal Gastroenterology: Positive: Normal, Abdominal Pain - No acute complaints now Endocrinology: Positive: Normal Neurology: Positive: Normal Psychiatry: Positive: Normal Home Medications: Home Medications Medication Instructions Recorded Confirmed Type Amoxicillin/Clavulanate TAB* 875 mg PO BID 09/13/18 09/13/18 History [Augmentin TAB 875*] Amphetamine MIXED SALTS TAB* 15 mg PO DAILY PRN 09/13/18 09/13/18 History [Adderall TAB*] Hydroxypropyl Cellulose [Lacrisert] 5 mg BOTH EYES BID 09/13/18 09/13/18 History clonazePAM TAB(*) [KlonoPIN TAB(*)] 0.5 mg PO TID 09/13/18 09/13/18 History Allergies: Allergies Allergy/AdvReac Type Severity Reaction Status Date / Time cefaclor Allergy Unknown Verified 09/13/18 12:35 Reaction Details Objective - Vital Signs Vital Signs: Vital Signs 09/13/18 09/13/18 09/13/18 11:42 11:45 12:00 Temperature Pulse Rate 115 113 112 Respiratory 21 22 Rate Blood Pressure 123/85 (mmHg) O2 Sat by Pulse 98 99 97 Oximetry 09/13/18 09/13/18 09/13/18 12:15 12:45 13:00 Temperature Pulse Rate 110 121 116 Respiratory 17 18 18 Rate Blood Pressure 128/82 145/81 (mmHg) O2 Sat by Pulse 98 98 97 Oximetry 09/13/18 09/13/18 09/13/18 13:15 14:00 14:15 Temperature Pulse Rate Respiratory 19 18 16 Rate Blood Pressure 127/87 121/98 (mmHg) O2 Sat by Pulse Oximetry 09/13/18 09/13/18 09/13/18 14:45 15:00 15:15 Temperature Pulse Rate 105 Respiratory 19 24 24 Rate Blood Pressure 113/77 119/80 (mmHg) O2 Sat by Pulse 98 Oximetry 09/13/18 09/13/18 09/13/18 15:42 16:19 16:45 Temperature 99.6 F 100.2 F Pulse Rate 67 101 Respiratory 18 15 16 Rate Blood Pressure 102/54 126/80 (mmHg) O2 Sat by Pulse 97 98 Oximetry 09/13/18 09/13/18 09/13/18 17:05 17:32 20:00 Temperature 100.2 F Pulse Rate 101 Respiratory 16 18 18 Rate Blood Pressure 126/80 (mmHg) O2 Sat by Pulse 98 Oximetry 02/15/19 02/15/19 02/15/19 20:18 20:25 23:27 Temperature 98.0 F Pulse Rate 104 Respiratory 22 18 18 Rate Blood Pressure 111/67 (mmHg) O2 Sat by Pulse 97 Oximetry 09/13/18 09/13/18 09/14/18 23:28 23:53 00:03 Temperature 97.5 F 98.3 F 99.0 F Pulse Rate 96 Respiratory 16 Rate Blood Pressure 106/66 (mmHg) O2 Sat by Pulse 100 Oximetry 09/14/18 09/14/18 09/14/18 01:48 01:49 03:39 Temperature 101.5 F 100.0 F Pulse Rate 106 Respiratory 18 16 Rate Blood Pressure 106/54 (mmHg) O2 Sat by Pulse 94 Oximetry 09/14/18 09/14/18 09/14/18 08:00 09:38 09:50 Temperature 97.2 F Pulse Rate 87 Respiratory 20 16 20 Rate Blood Pressure 105/63 (mmHg) O2 Sat by Pulse 99 Oximetry - Intake and Output Intake and Output: Intake & Output 09/12/18 09/13/18 09/14/18 09/15/18 06:59 06:59 06:59 06:59 Intake Total 3305 Output Total 600 Balance 2705 Weight 190 lb Intake: IV Fluids 2200 IVPB 425 Pipercillin 125 Vancomycin 300 Oral 680 Output: Urine 600 Other: Estimated Void Medium # Bowel Movements 0 # Voids 1 ADLs: Meal Record Start: 09/13/18 15: 42 Freq: DAILY@0900,1400,1800 Status: Active Protocol: Created 09/13/18 15:42 System (Rec: 09/13/18 15:42 System [email or web address]) Document 09/13/18 18:00 [id number] (Rec: 09/13/18 21:55 [id number]) Intake and Output Start: 09/13/18 10: 58 Freq: Status: Active Protocol: Created 09/13/18 10:58 System (Rec: 09/13/18 10:58 System [id number]) Intake and Output Start: 09/13/18 15: 42 Freq: DAILY@0600,1400,2200 Status: Active Protocol: Created 09/13/18 15:42 System (Rec: 09/13/18 15:42 System [email or web address]) Document 09/13/18 21:55 [id number] (Rec: 09/13/18 21:57 [id number] [place] [id number]) - Physical Exam General Physical Exam Comment: No acute distress. Conversative. He noted possible earlier slight subjective swelling of the facial region but it is not noted now. Eye Exam: bilateral: PERRLA Skin: Abnormal: Rash - No acute changes in his skin; minimal papules had been noted on outer thighs Ear Exam: bilateral ear: Normal Thyroid Function: Clinically Euthyroid Lungs and Chest: Yes: Chest Expansion Full, Chest Expansion Symetrica, Percussion Note Resonant Heart Rate and Rhythm: Regular JVP: Not Elevated Eidson Beat: Non Displaced Additional Cardiovascular: Yes: Eidson Beat not Displaced Abdominal Exam: Yes: Soft - Rheumotological System Joints: Range of Motion - No joint synovitis and no joint warmth is present - Extremities Posterior Tibial Pulse: Bilateral Normal Dorsalis Pedis Pulses: Bilateral Normal Limbs: Normal Power - Neuro Psychiatric: Normal Speech: Normal Results - Results Lab Results: Laboratory Results - last 24 hr 09/13/18 09/13/18 09/13/18 11:29 11:29 11:29 WBC 8.1 RBC 5.50 H Hgb 15.8 Hct 47 MCV 85 MCH 29 MCHC 34 RDW 14 Plt Count 300 MPV 7.1 L Neut % (Auto) 63.2 Lymph % (Auto) 25.3 Kern % (Auto) 9.7 Eos % (Auto) 0.8 Baso % (Auto) 1.0 Absolute Neuts (auto) 5.1 Absolute Lymphs (auto) 2.0 Absolute Monos (auto) 0.8 Absolute Eos (auto) 0.1 Absolute Basos (auto) 0.1 Absolute Nucleated RBC 0 Immature Gran % Neutrophils % Band Neutrophils % Lymphocytes % Reactive Lymphs % Monocytes % Eosinophils % Nucleated RBC % 0.1 Abs Neuts (Manual) Abs Lymphs (Manual) Abs Monocytes (Manual) Absolute Eos (Manual) Normal RBC Morphology ESR 8 INR (Anticoag Therapy) 1.09 H APTT 35.3 D-Dimer, Quantitative 719 H Sodium 131 L Potassium 3.6 Chloride 97 L Carbon Dioxide 24 Anion Gap 10 BUN 6 Creatinine 1.07 Est GFR ( Amer) 95.7 Est GFR (Non-Af Amer) 79.1 BUN/Creatinine Ratio 5.6 L Glucose 118 H Lactic Acid Calcium 9.0 Total Bilirubin 0.80 Direct Bilirubin Indirect Bilirubin AST 83 H ALT 99 H Alkaline Phosphatase 147 H Total Creatine Kinase Troponin I 0.00 C-Reactive Protein 26.58 H Total Protein 7.1 Albumin 3.9 Globulin 3.2 Albumin/Globulin Ratio 1.2 TSH 0.97 Urine Color Urine Appearance Urine pH Ur Specific [place] Urine Protein Urine Ketones Urine Blood Urine Nitrate Urine Bilirubin Urine Urobilinogen Ur Leukocyte Esterase Urine Glucose Urine Opiates Screen Ur Barbiturates Screen Ur Phencyclidine Scrn Ur Amphetamines Screen U Benzodiazepines Scrn Urine Cocaine Screen U Cannabinoids Screen Rheumatoid Factor Hepatitis A IgM Ab Hepatitis B Antibody Hep Bs Antigen Hep Bs Antibody, Quant Hep B Core IgM Ab Influenza A (Rapid) Influenza B (Rapid) Group A Strep Rapid 09/13/18 09/13/18 09/13/18 11:29 11:29 11:56 WBC RBC Hgb Hct MCV MCH MCHC RDW Plt Count MPV Neut % (Auto) Lymph % (Auto) Kern % (Auto) Eos % (Auto) Baso % (Auto) Absolute Neuts (auto) Absolute Lymphs (auto) Absolute Monos (auto) Absolute Eos (auto) Absolute Basos (auto) Absolute Nucleated RBC Immature Gran % Neutrophils % Band Neutrophils % Lymphocytes % Reactive Lymphs % Monocytes % Eosinophils % Nucleated RBC % Abs Neuts (Manual) Abs Lymphs (Manual) Abs Monocytes (Manual) Absolute Eos (Manual) Normal RBC Morphology ESR INR (Anticoag Therapy) APTT D-Dimer, Quantitative Sodium Potassium Chloride Carbon Dioxide Anion Gap BUN Creatinine Est GFR ( Amer) Est GFR (Non-Af Amer) BUN/Creatinine Ratio Glucose Lactic Acid 1.1 Calcium Total Bilirubin Direct Bilirubin Indirect Bilirubin AST ALT Alkaline Phosphatase Total Creatine Kinase Troponin I C-Reactive Protein Total Protein Albumin Globulin Albumin/Globulin Ratio TSH Urine Color Urine Appearance Urine pH Ur Specific [place] Urine Protein Urine Ketones Urine Blood Urine Nitrate Urine Bilirubin Urine Urobilinogen Ur Leukocyte Esterase Urine Glucose Urine Opiates Screen Ur Barbiturates Screen Ur Phencyclidine Scrn Ur Amphetamines Screen U Benzodiazepines Scrn Urine Cocaine Screen U Cannabinoids Screen Rheumatoid Factor Hepatitis A IgM Ab Nonreactive Hepatitis B Antibody Not immune A Hep Bs Antigen Nonreactive Hep Bs Antibody, Quant 4.37 Hep B Core IgM Ab Nonreactive Influenza A (Rapid) Influenza B (Rapid) Group A Strep Rapid Negative 09/13/18 09/13/18 09/13/18 12:04 12:31 12:31 WBC RBC Hgb Hct MCV MCH MCHC RDW Plt Count MPV Neut % (Auto) Lymph % (Auto) Kern % (Auto) Eos % (Auto) Baso % (Auto) Absolute Neuts (auto) Absolute Lymphs (auto) Absolute Monos (auto) Absolute Eos (auto) Absolute Basos (auto) Absolute Nucleated RBC Immature Gran % Neutrophils % Band Neutrophils % Lymphocytes % Reactive Lymphs % Monocytes % Eosinophils % Nucleated RBC % Abs Neuts (Manual) Abs Lymphs (Manual) Abs Monocytes (Manual) Absolute Eos (Manual) Normal RBC Morphology ESR INR (Anticoag Therapy) APTT D-Dimer, Quantitative Sodium Potassium Chloride Carbon Dioxide Anion Gap BUN Creatinine Est GFR ( Amer) Est GFR (Non-Af Amer) BUN/Creatinine Ratio Glucose Lactic Acid Calcium Total Bilirubin Direct Bilirubin Indirect Bilirubin AST ALT Alkaline Phosphatase Total Creatine Kinase Troponin I C-Reactive Protein Total Protein Albumin Globulin Albumin/Globulin Ratio TSH Urine Color Yellow Urine Appearance Clear Urine pH 6.0 Ur Specific [place] 1.004 L Urine Protein Negative Urine Ketones Trace A Urine Blood Negative Urine Nitrate Negative Urine Bilirubin Negative Urine Urobilinogen Negative Ur Leukocyte Esterase Negative Urine Glucose Negative Urine Opiates Screen None detected Ur Barbiturates Screen None detected Ur Phencyclidine Scrn None detected Ur Amphetamines Screen None detected U Benzodiazepines Scrn None detected Urine Cocaine Screen None detected U Cannabinoids Screen None detected Rheumatoid Factor Hepatitis A IgM Ab Hepatitis B Antibody Hep Bs Antigen Hep Bs Antibody, Quant Hep B Core IgM Ab Influenza A (Rapid) Negative Influenza B (Rapid) Negative Group A Strep Rapid 09/13/18 09/13/18 09/14/18 15:53 19:26 07:17 WBC 5.8 RBC 4.98 Hgb 14.4 Hct 42 MCV 85 MCH 29 MCHC 34 RDW 14 Plt Count 255 MPV 7.6 Neut % (Auto) Not Reportable Lymph % (Auto) Not Reportable Kern % (Auto) Not Reportable Eos % (Auto) Not Reportable Baso % (Auto) Not Reportable Absolute Neuts (auto) 2.7 Absolute Lymphs (auto) 2.2 Absolute Monos (auto) 0.6 Absolute Eos (auto) 0.2 Absolute Basos (auto) 0.1 Absolute Nucleated RBC Not Reportable Immature Gran % 1 Neutrophils % 56 Band Neutrophils % 1 Lymphocytes % 22 Reactive Lymphs % 9 H Monocytes % 8 Eosinophils % 4 Nucleated RBC % Not Reportable Abs Neuts (Manual) 3.3 Abs Lymphs (Manual) 1.8 Abs Monocytes (Manual) 0.5 Absolute Eos (Manual) 0.2 Normal RBC Morphology Normal ESR INR (Anticoag Therapy) APTT D-Dimer, Quantitative Sodium Potassium Chloride Carbon Dioxide Anion Gap BUN Creatinine Est GFR ( Amer) Est GFR (Non-Af Amer) BUN/Creatinine Ratio Glucose Lactic Acid 1.1 Calcium Total Bilirubin Direct Bilirubin Indirect Bilirubin AST ALT Alkaline Phosphatase Total Creatine Kinase 66 Troponin I C-Reactive Protein Total Protein Albumin Globulin Albumin/Globulin Ratio TSH Urine Color Urine Appearance Urine pH Ur Specific [place] Urine Protein Urine Ketones Urine Blood Urine Nitrate Urine Bilirubin Urine Urobilinogen Ur Leukocyte Esterase Urine Glucose Urine Opiates Screen Ur Barbiturates Screen Ur Phencyclidine Scrn Ur Amphetamines Screen U Benzodiazepines Scrn Urine Cocaine Screen U Cannabinoids Screen Rheumatoid Factor < 10 Hepatitis A IgM Ab Hepatitis B Antibody Hep Bs Antigen Hep Bs Antibody, Quant Hep B Core IgM Ab Influenza A (Rapid) Influenza B (Rapid) Group A Strep Rapid 09/14/18 07:17 WBC RBC Hgb Hct MCV MCH MCHC RDW Plt Count MPV Neut % (Auto) Lymph % (Auto) Kern % (Auto) Eos % (Auto) Baso % (Auto) Absolute Neuts (auto) Absolute Lymphs (auto) Absolute Monos (auto) Absolute Eos (auto) Absolute Basos (auto) Absolute Nucleated RBC Immature Gran % Neutrophils % Band Neutrophils % Lymphocytes % Reactive Lymphs % Monocytes % Eosinophils % Nucleated RBC % Abs Neuts (Manual) Abs Lymphs (Manual) Abs Monocytes (Manual) Absolute Eos (Manual) Normal RBC Morphology ESR INR (Anticoag Therapy) APTT D-Dimer, Quantitative Sodium 137 Potassium 3.9 Chloride 107 Carbon Dioxide 22 Anion Gap 8 BUN 6 Creatinine 1.03 Est GFR ( Amer) 100.0 Est GFR (Non-Af Amer) 82.7 BUN/Creatinine Ratio 5.8 L Glucose 104 H Lactic Acid Calcium 8.1 L Total Bilirubin 0.80 Direct Bilirubin 0.20 H Indirect Bilirubin 0.6 AST 80 H ALT 86 H Alkaline Phosphatase 121 H Total Creatine Kinase Troponin I C-Reactive Protein Total Protein 5.9 L Albumin 3.1 L Globulin 2.8 Albumin/Globulin Ratio 1.1 TSH Urine Color Urine Appearance Urine pH Ur Specific [place] Urine Protein Urine Ketones Urine Blood Urine Nitrate Urine Bilirubin Urine Urobilinogen Ur Leukocyte Esterase Urine Glucose Urine Opiates Screen Ur Barbiturates Screen Ur Phencyclidine Scrn Ur Amphetamines Screen U Benzodiazepines Scrn Urine Cocaine Screen U Cannabinoids Screen Rheumatoid Factor Hepatitis A IgM Ab Hepatitis B Antibody Hep Bs Antigen Hep Bs Antibody, Quant Hep B Core IgM Ab Influenza A (Rapid) Influenza B (Rapid) Group A Strep Rapid Assessment - Problem List Assessment: Patient Problems Anxiety (Acute) DVT prophylaxis (Acute) Full code status (Acute) Sepsis (Acute) Plan: Mr. Richmond has a history of fevers with elevated inflammatory markers. He is not immunocompromised as he has not been on immunosuppressive medication. 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 CT results suggest right renal pelviectasis, so I am wondering if he has had a kidney infection which is resolving; other imaging studies are not remarkable. Autoimmune serologies are pending. He has no acute change in his status and there is no joint synovitis on today's exam. CMV titers are pending. Follow up cultures; continue antibiotics
[2018-09-14 13:29] LABS: Hepatitis C Antibody Nonreactive (Nonreactive)
[2018-09-14] MEDS ORDERED: Vancomycin Trough Check NOTE FOLLOW UP ONE (15:30)
[2018-09-14 16:21] LABS: EGFR African American 102.3 (>60); EGFR Non-African American 84.6 (>60)
[2018-09-14 16:28] LABS: Vancomycin Trough 18.5 mcg/mL
[2018-09-14] MEDS: traZODone TAB* 100 MG PO SCH (22:53)
[2018-09-14] MEDS: Zolpidem TAB* 5 MG PO PRN (22:53)
[2018-09-15] MEDS: Acetaminophen TAB* 325 MG PO PRN ×2 (05:03→20:02)
[2018-09-15] MEDS: Heparin VIAL(*) 5000 UNITS/ML VIAL (FIVE THOUSAND) SUBCUT SCH ×3 (05:04→21:43)
[2018-09-15 07:17] LABS: ABS Basophils 0.1 10^3/ul (0-0.2); ABS Eosinophils 0.1 10^3/ul (0-0.6); ABS Lymphocytes 3.3 10^3/ul (1.0-4.8); ABS Monocytes 0.7 10^3/ul (0-0.8); ABS Neutrophils 4.1 10^3/ul (1.5-7.7); ABS Nucleated RBC 0 10^3/ul; Eosinophil % 1.7 %; Hematocrit 40 % (42-52); Hemoglobin 13.2 g/dl (14.0-18.0); Lymphocyte % 39.5 %; Mean Corpuscular HGB Conc 33 g/dl (31-36); Mean Corpuscular Hemoglobin 28 pg (27-31); Mean Corpuscular Volume 84 fL (80-94); Mean Platelet Volume 7.2 fL (7.4-10.4); Nucleated Red Blood Cells % 0.2; Platelet Count 267 10^3/ul (150-450); Red Blood Count 4.75 10^6/ul (4.00-5.40); Red Cell Distribution Width 14 % (10.5-15); White Blood Count 8.4 10^3/ul (3.5-10.8)
[2018-09-15 07:32] LABS: BUN/Creatinine Ratio 5.2 (8-20); C Reactive Protein 26.49 mg/L (<8.01); EGFR African American 108.5 (>60); EGFR Non-African American 89.7 (>60); Potassium 3.5 mmol/L (3.5-5.0)
[2018-09-15] MEDS: Artificial Tear OPHTH.OINT* 3.5 GM BOTH EYES SCH ×2 (08:58→21:37)
[2018-09-15] MEDS: NS 0.9% 1000 ML** 1,000 ML IV SCH ×2 (08:58→21:47)
[2018-09-15] MEDS: clonazePAM TAB(*) 0.5 MG PO SCH ×3 (08:59→21:42)
--- NOTE | 2018-09-15 09:18 | PN ---
Subjective Date of Service: 09/15/18 Interval History: Mr. Sanchez reports feeling well today. He notes shaking chills and then fever overnight. He again notes that he has had a mild sore throat, a cough that has resolved, and now a sensation of chest heaviness with deep breathing. He denies malaise, joint pain, abdominal pain, or nausea. Objective Active Medications: Acetaminophen (Tylenol Tab*) 650 mg PO Q6H PRN Artificial Tears (Lacrilube Oint*) 5 applic BOTH EYES BID [facility] Clonazepam (Klonopin Tab(*)) 0.5 mg PO TID [facility] Heparin Sodium (Porcine) (Heparin Vial(*)) 5,000 units SUBCUT Q8HR [facility] Sodium Chloride (Ns 0.9% 1000 Ml) 1,000 mls @ 100 mls/hr IV PER RATE [facility] Ibuprofen (Motrin Tab*) 400 mg PO Q6H PRN Trazodone HCl (Desyrel Tab*) 100 mg PO BEDTIME [facility]NE Zolpidem Tartrate (Ambien Tab*) 5 mg PO BEDTIME PRN Vital Signs: Temp Pulse Resp BP Pulse Ox 98.6 F 106 16 106/52 94 09/15/18 07:39 09/15/18 07:39 09/15/18 08:59 09/15/18 07:39 09/15/18 07:39 Oxygen Devices in Use Now: None Appearance: Male lying in bed in NAD Eyes: No Scleral Icterus Ears/Nose/Mouth/Throat: Mucous Membranes Moist Respiratory: Clear to Auscultation Cardiovascular: NL Sounds; No Murmurs; No JVD, No Edema Abdominal: NL Sounds; No Tenderness; No Distention Lymphatic: No Cervical Adenopathy Extremities: No Edema Skin: No Rash or Ulcers Neurological: Alert and Oriented x 3, NL Muscle Strength and Tone Nutrition: Taking PO's Result Diagrams: 09/15/18 07:04 09/15/18 07:04 Additional Lab and Data: . Microbiology and Other Data: . Assess/Plan/Problems-Billing Assessment: Mr. Sanchez is a 32 yo M with a PMH of raynauds, report of sjogren's who was admitted on 09/13/18 with concern for fever and tachycardia and concern for sepsis of unknown etiology - Patient Problems (1) Sepsis Comment: - Tmax 102.5, tachycardia resolving. No leukocytosis. ESR 8. CRP 26. - UA negative. LFTs mildly elevated. CT chest/abd/pelvis and GB US negative. ESR normal and CRP minimally elevated. Flu swab negative. Blood cultures negative thus far. - Appreciate consult from Dr. Medellin, follow labs but no clear evidence of flare of connective tissue disease. - ? viral illness, given negative workup. HIV pending. ? atypical pneumonia, plan for azithromycin until ID consult tomorrow (2) Anxiety Comment: - With interstitial cystitis - Continue clonazepam (3) DVT prophylaxis Comment: - Heparin SQ (4) Full code status Comment: Status and Disposition: Inpatient
[2018-09-15] MEDS ORDERED: Azithromycin TAB* 250 MG PO ONE (09:35)
[2018-09-15 09:41] LABS: Rapid HIV 1 Nonreactive (Nonreactive)
[2018-09-15] MEDS: Zolpidem TAB* 5 MG PO PRN (21:42)
[2018-09-15] MEDS: traZODone TAB* 100 MG PO SCH (21:43)
[2018-09-15] MEDS: DOXYcycline CAP(*) 100 MG PO SCH (23:25)
[2018-09-16] MEDS: Heparin VIAL(*) 5000 UNITS/ML VIAL (FIVE THOUSAND) SUBCUT SCH ×3 (06:10→21:00)
[2018-09-16] MEDS: NS 0.9% 1000 ML** 1,000 ML IV SCH (07:14)
[2018-09-16 07:49] LABS: ABS Basophils 0.1 10^3/ul (0-0.2); ABS Eosinophils 0.2 10^3/ul (0-0.6); ABS Lymphocytes 3.1 10^3/ul (1.0-4.8); ABS Monocytes 0.6 10^3/ul (0-0.8); ABS Neutrophils 2.7 10^3/ul (1.5-7.7); ABS Nucleated RBC 0 10^3/ul; Eosinophil % 3.6 %; Hematocrit 42 % (42-52); Hemoglobin 13.9 g/dl (14.0-18.0); Mean Corpuscular HGB Conc 33 g/dl (31-36); Mean Corpuscular Hemoglobin 28 pg (27-31); Mean Corpuscular Volume 85 fL (80-94); Mean Platelet Volume 7.5 fL (7.4-10.4); Nucleated Red Blood Cells % 0.2; Platelet Count 298 10^3/ul (150-450); Red Blood Count 4.96 10^6/ul (4.00-5.40); Red Cell Distribution Width 14 % (10.5-15); White Blood Count 6.7 10^3/ul (3.5-10.8)
[2018-09-16 08:03] LABS: BUN/Creatinine Ratio 5.4 (8-20); Calcium 8.4 mg/dL (8.6-10.3); EGFR African American 146.5 (>60); EGFR Non-African American 121.1 (>60); Potassium 3.6 mmol/L (3.5-5.0)
[2018-09-16 08:24] LABS: Ferritin 344.9 ng/mL (24-336)
[2018-09-16] MEDS: Artificial Tear OPHTH.OINT* 3.5 GM BOTH EYES SCH ×2 (08:41→20:08)
[2018-09-16] MEDS: clonazePAM TAB(*) 0.5 MG PO SCH ×3 (08:41→21:00)
[2018-09-16] MEDS: DOXYcycline CAP(*) 100 MG PO SCH (08:41)
--- NOTE | 2018-09-16 12:01 | CONS ---
DATE OF CONSULTATION: 09/16/2018. REQUESTING PHYSICIAN: Dr. Boyle. CONSULTING SERVICE: Infectious Disease. REASON FOR CONSULTATION: Fever. IMPRESSION: 1. Three weeks of fever with some constipation, nonproductive cough, mild elevation inflammatory markers, hemodynamically stable. He has had mild transaminitis which is asymptomatic and normal gallbladder imaging. CT chest, abdomen, and pelvis did not reveal source. The differential diagnosis for infectious cause includes infectious endocarditis. His negative blood cultures may be false negatives in the setting of outpatient Augmentin treatment. Otherwise I think a bacterial source, less likely he does not have much outdoor exposure and no white count or platelet changes to suggest other tick born infection. He has a normal bilirubin, so I think hemolysis less likely as well arguing against Babesia. Viral infections are possible, including what has been tested for and pending, Stephen-Cisneros and cytomegalovirus. Noninfectious considerations include adult Still's disease, particularly with his salmon- colored macular rash on his posterior thighs. He does have slight elevation in ferritin, though I think probably not to the extent one would expect with adult Still's. 2. Sicca Syndrome with a history of negative lip biopsy. 3. History of a colonoscopy for constipation about ten years ago that reportedly showed colitis. RECOMMENDATIONS: Transthoracic echocardiogram. If that's negative, transesophageal echocardiogram. Can hold on antibiotics. HISTORY OF PRESENT ILLNESS: This is a 32-year-old man with a history of Sicca Syndrome, diffuse arthralgia, work-up for a seronegative arthropathy. He has now had three weeks of fever, happening everyday in the evening with some chills , shaking chills, no drenching sweats. His appetite has decreased a bit, but his weight has been stable. He has had intermittent constipation throughout this time, sometimes going as much as five or six days without a bowel movement. He has had improvement with [id number] laxatives. Two years ago and three years ago he was in the ER here with fever, chills, and constipation. It only lasted a few days which this is different because it has been going on for three weeks. He has had no sore throat and no neck, groin, or arm pit swelling. He has had occasional headaches. He has had no worsening joint pain or swelling. No spine pain. He has interstitial cystitis, though has not noticed any change in those symptoms. He has had a rash on the posterior thighs, off and on for a few years, sometimes itchy, usually does not feel like anything. He has no prosthetic material present. He has had no trips out of country in the last year. Because of the fevers he went to Urgent Care. He was given a cough suppressant at the time of a nonproductive cough about [id number]-half weeks ago. Because of ongoing fever, he returned to [facility] and was given Augmentin prescription. He started it about a week before he came in without much improvement. Because of worsening symptoms, he eventually got to see Dr. Boyle in the [facility]. He recommended he come into the ER on the . He had a chest x-ray that showed no acute changes. CT chest, abdomen, and pelvis showed diverticulosis, some liver lesions, but look most like hemangioma and no pulmonary infiltrate. Gallbladder ultrasound was unremarkable. He has a history of cholesteatoma resection twice associated with the right side. No ear symptoms, pain or drainage. He had a temporal bone CT that showed some soft tissue density in the canals. He had a temperature of 38.6 here on the 16 in the morning and on the at 4 or 5 in the morning. Tylenol helps. It does not relieve his symptoms. He has been intermittently tachycardic throughout his stay. Blood pressure is stable. PAST MEDICAL HISTORY: 1. Cholesteatoma resection right ear twice, most recently about a year ago. 2. Sicca Syndrome with negative Sjogren's work-up and question of a seronegative arthropathy. MEDICATIONS: Tylenol, Azithromycin, Doxycycline, Heparin subcutaneous injection , ibuprofen as needed, Trazodone, Ambien. ALLERGIES: CEFACLOR, unknown reaction as a baby. FAMILY HISTORY: No recurrent infection or autoimmune disorders. 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 He lives with his and [id number] son. They have a pet dog at home. They do not spent really much time outdoors in the area. No trips out of the country. No trips out of the area in the last few months. He has not lives in other countries or spent much time in the tropics, other than [place] trips to the [place] No injection drugs. No new partners. REVIEW OF SYSTEMS: All negative except as noted above to 14 point review. PHYSICAL EXAM: General: He is awake and not in distress. Vital Signs: Temperature 37, heart rate 110, respiratory rate 20, blood pressure 114/62, oxygen saturation 94 percent on room air. Neurologic: He is oriented times three. Follows all commands. Moves all extremities. Sensation is intake to light touch in the upper and lower extremities bilaterally. HEENT: There is no conjunctival hemorrhage. Oropharynx without lesions. Neck: Supple without mass. Heart: Regular and tachycardic without murmurs. Lungs: Clear to auscultation bilaterally. Abdomen: Soft, nontender, nondistended. There are bowel sounds present. Skin: In the posterior thighs bilaterally, salmon- colored macules which are nonblanching. Lymph nodes: There is no cervical, supraclavicular, inguinal, axillary, or epitrochlear lymphadenopathy. Musculoskeletal: There is no spine tenderness to palpation or joint synovitis. LABORATORY DATA: White blood cell count 6.7, hemoglobin 13.9, MCV 85, platelets 298; creatinine 0.7, ferritin 344, CRP 27, ALT 86 on the 16th. Urinalysis: Trace ketones, otherwise negative. Vancomycin trough was 18 when he was on it. Toxicology screen was negative. Rheumatoid factor of 5. Influenza PCR negative. HIV antibody negative. Hep-C antibody negative, Hep B core IgM negative, Hep B surface antigen negative, Hep A IgM antibody negative. Blood cultures on the 15 were negative times two. Sputum culture grew normal naveen. Please see impressions and recommendations noted above. Thank you for asking me to see Mr. Sanchez in consultation. [id number]/[facility] #: [id number] [facility] SYSTEM[facility]onika
--- NOTE | 2018-09-16 13:05 | PN ---
Subjective Date of Service: 09/16/18 Interval History: Mr. Sanchez reports feeling the same. He generally feels well (though he looks very fatigued) during the day and then has fevers at night. Objective Active Medications: Acetaminophen (Tylenol Tab*) 650 mg PO Q6H PRN Artificial Tears (Lacrilube Oint*) 5 applic BOTH EYES BID SHYANNE Clonazepam (Klonopin Tab(*)) 0.5 mg PO TID SHYANNE Doxycycline Hyclate (Vibramycin Cap(*)) 100 mg PO BID SHYANNE Heparin Sodium (Porcine) (Heparin Vial(*)) 5,000 units SUBCUT Q8HR SHYANNE Sodium Chloride (Ns 0.9% 1000 Ml) 1,000 mls @ 100 mls/hr IV PER RATE SHYANNE Ibuprofen (Motrin Tab*) 400 mg PO Q6H PRN Trazodone HCl (Desyrel Tab*) 100 mg PO BEDTIME SHYANNE Zolpidem Tartrate (Ambien Tab*) 5 mg PO BEDTIME PRN Vital Signs: Temp Pulse Resp BP Pulse Ox 97.5 F 104 16 115/73 96 09/16/18 11:46 09/16/18 11:46 09/16/18 11:46 09/16/18 11:46 09/16/18 11:46 Oxygen Devices in Use Now: None Appearance: Male lying in bed in NAD Eyes: No Scleral Icterus Ears/Nose/Mouth/Throat: Mucous Membranes Moist Neck: Trachea Midline Respiratory: Symmetrical Chest Expansion and Respiratory Effort, Clear to Auscultation Cardiovascular: NL Sounds; No Murmurs; No JVD, No Edema Extremities: No Edema Skin: No Rash or Ulcers Neurological: Alert and Oriented x 3, NL Muscle Strength and Tone Nutrition: Taking PO's Result Diagrams: 09/16/18 06:57 09/16/18 06:57 Additional Lab and Data: . Microbiology and Other Data: . Assess/Plan/Problems-Billing Assessment: Mr. Sanchez is a 32 yo M with a PMH of raynauds, report of sjogren's who was admitted on 09/13/18 with concern for fever and tachycardia and concern for sepsis of unknown etiology. - Patient Problems (1) Sepsis Comment: - Appreciate ID consult, note that we cannot rule of endocarditis despite negative blood cultures because patient had been on antibiotics. - TTE today found pulmonic valve vegetation. Also note CMV positive as well. Alaina updated, continue to plan for SOFIE tomorrow. - Tmax 102.5. No leukocytosis. ESR 8. CRP 26. - UA negative. LFTs mildly elevated. CT chest/abd/pelvis and GB US negative. ESR normal and CRP minimally elevated. Flu swab negative. Blood cultures negative thus far. - Appreciate consult from Dr. Medellin, follow labs but no clear evidence of flare of connective tissue disease. - ? viral illness, given negative workup. HIV negative. (2) Anxiety Comment: - With interstitial cystitis - Continue clonazepam (3) DVT prophylaxis Comment: - Heparin SQ (4) Full code status Comment: Status and Disposition: Inpatient. Anticipate discharge to home when medically stable.
[2018-09-16 15:55] LABS: Cytomegalovirus IgG Antibody Positive (Negative)
--- NOTE | 2018-09-16 16:13 | ECHO ---
Patient: AVANI BARAJAS [facility] Rec#: [id number] : 1985 Date: 09/16/2018 Age: 32y Height: 178 cm / 70.1 in Weight: 86 kg / 189.5 lbs Sex: M BSA: 2.04 Room#: [facility] Admit Date#: 09/13/2018 Type: Inpatient Referring: Evangelista Boyle Reading: Harrison Isabel MD Medical Educator: Rosario De Oliveira RDCS CC: Ashish Foley MD CC: Randy Demarco MD Transthoracic Echocardiogram Indication: Fever BP: 115/75 HR: 119 Rhythm: Tachycardia Findings Technical Comments: The study quality is fair. Completed at 1407. Left Ventricle: The left ventricular chamber size is normal. There is no left ventricular hypertrophy. Global left ventricular wall motion and contractility are within normal limits. There is normal left ventricular systolic function. The estimated ejection fraction is 55-60%. There is no consistent Doppler evidence of clinically significant diastolic dysfunction. Left Atrium: The left atrial chamber size is normal. Right Ventricle: Moderator Band present. The right ventricular cavity size is normal. The right ventricular global systolic function is normal. Right Atrium: The right atrial cavity size is normal. Aortic Valve: The aortic valve is trileaflet. There is no evidence of aortic valve thickening. There is no evidence of aortic regurgitation. There is no evidence of aortic stenosis. There is no aortic vegetation present. Mitral Valve: The mitral valve leaflets are mildly thickened. There is a trace of mitral regurgitation. There is no evidence of mitral stenosis. Tricuspid Valve: The tricuspid valve leaflets are normal. There is trace tricuspid regurgitation. Unable to estimate the right ventricular systolic pressure. There is no tricuspid stenosis. No vegetation is observed on the tricuspid valve. Pulmonic Valve: The pulmonic valve appears normal. There is a trace pulmonic regurgitation. There is no pulmonic stenosis. A mass is visualized on the pulmonic valve which appears consistent with a vegetation. Pericardium: There is no significant pericardial effusion. Aorta: There is no dilatation of the ascending aorta. There is no dilatation of the aortic arch. The aortic root is normal in size. Pulmonary Artery: The main pulmonary artery appears normal. Venous: The inferior vena cava appears normal in size. There is a greater than 50% respiratory change in the inferior vena cava dimension. Summary: There was not any prior study for comparison. Conclusions Global left ventricular wall motion and contractility are within normal limits. There is normal left ventricular systolic function. The estimated ejection fraction is 55-60%. There is no evidence of aortic stenosis. There is no aortic vegetation present. There is a trace of mitral regurgitation. There is trace tricuspid regurgitation. Unable to estimate the right ventricular systolic pressure. A mass is visualized on the pulmonic valve which appears consistent with a vegetation. There is no significant pericardial effusion. Measurements Name Value Normal Range RVIDd (AP) 2D 2.5 cm (0.9 - 2.6) RVDdMajor (2D) 3.7 cm (2.2 - 4.4) RAd ISD 4CH 4.4 cm (3.4 - 4.9) RA (A4C)W 3.6 cm (2.9 - 4.6) IVSd (2D) 0.8 cm (0.6 - 1) LVPWd (2D) 1 cm (0.6 - 1) LVIDd (2D) 4.1 cm (3.6 - 5.4) LVIDs (2D) 3 cm - LV FS (2D) 26 % (25 - 45) Aortic Annulus 2 cm (1.4 - 2.6) Ao root diameter (2D) 3.3 cm (2.1 - 3.5) Ascending Ao 2.9 cm (2.1 - 3.4) Aortic arch 1.9 cm (1.8 - 3.4) LA dimension (AP) 2D 3.2 cm (2.3 - 3.8) LAd ISD 4CH 4.5 cm (2.9 - 5.3) LA ISD 4CH W 3.4 cm (2.5 - 4.5) Name Value Normal Range LA ESV BP (A/L) index 17 ml/m2 - Name Value Normal Range MV E-wave Vmax 0.9 m/sec - MV deceleration time 176 msec - MV A-wave Vmax 0.8 m/sec - MV E:A ratio 1.1 ratio - LV septal e' Vmax 0.1 m/sec - LV lateral e' Vmax 0.1 m/sec - LV E:e' septal ratio 9 ratio - LV E:e' lateral ratio 9 ratio - Name Value Normal Range AV Vmax 1.3 m/sec - AV VTI 20 cm - AV peak gradient 6 mmHg - AV mean gradient 3 mmHg - LVOT Vmax 1.1 m/sec - LVOT VTI 18 cm - LVOT peak gradient 5 mmHg - LVOT mean gradient 2 mmHg - JUANITA Vmax 1.1 m/sec - Name Value Normal Range IVC diameter 1.3 cm - Name Value Normal Range PV Vmax 1.2 m/sec - PV peak gradient 6 mmHg -
--- NOTE | 2018-09-16 18:19 | PN ---
Subjective - Subjective Date of Service: 09/16/18 - chief complaint: fever in the setting of a possible connective tissue disorder History: Patient continues to have fevers. Events noted. Reviewed echo results with hospitalist; he has a pulmonic valve vegetation so a SOFIE will be done to characterize it. Also: CMV IGM is positive; clinical significance is unclear; would recommend CMV antiginemia (PCR). Left message for ID to review and discuss. Otherwise patient generally feels about the same. He denied joint pain or swelling. Active Problems: Active Problems Anxiety (Acute) F41.9 - With interstitial cystitis - Continue clonazepam DVT prophylaxis (Acute) [id number] - Heparin SQ Sepsis (Acute) - Appreciate ID consult, note that we cannot rule of endocarditis despite negative blood cultures because patient had been on antibiotics. - TTE today found pulmonic valve vegetation. Also note CMV positive as well. Alaina updated, continue to plan for SOFIE tomorrow. - Tmax 102.5. No leukocytosis. ESR 8. CRP 26. - UA negative. LFTs mildly elevated. CT chest/abd/pelvis and GB US negative. ESR normal and CRP minimally elevated. Flu swab negative. Blood cultures negative thus far. - Appreciate consult from Dr. Medellin, follow labs but no clear evidence of flare of connective tissue disease. - ? viral illness, given negative workup. HIV negative. Current Medications: Current Medications Acetaminophen (Tylenol Tab*) 650 mg PO Q6H PRN PRN Reason: FEVER/PAIN Last Admin: 09/15/18 20:02 Dose: 650 mg Artificial Tears (Lacrilube Oint*) 5 applic BOTH EYES BID [facility] Last Admin: 09/16/18 08:41 Dose: Not Given Clonazepam (Klonopin Tab(*)) 0.5 mg PO TID [facility] Last Admin: 09/16/18 13:56 Dose: 0.5 mg Heparin Sodium (Porcine) (Heparin Vial(*)) 5,000 units SUBCUT Q8HR [facility] Last Admin: 09/16/18 13:57 Dose: 5,000 units Ibuprofen (Motrin Tab*) 400 mg PO Q6H PRN PRN Reason: PAIN Last Admin: 09/14/18 15:26 Dose: 400 mg Trazodone HCl (Desyrel Tab*) 100 mg PO BEDTIME [facility] Last Admin: 09/15/18 21:43 Dose: 100 mg Zolpidem Tartrate (Ambien Tab*) 5 mg PO BEDTIME PRN PRN Reason: INSOMNIA Last Admin: 09/15/18 21:42 Dose: 5 mg - Review of Systems General Comments: No specific complaints but is generally fatigued; still with symptoms of chronic interstitial cystitis Constitutional Symptoms: Yes: Fatigue, Fever, No: Weight Gain, Weight Loss, Unexplained Falls Dermatology: Skin Lesions: Yes - unchanged HEENT: Yes Normal Eyes: Positive: Normal Thyroid: Positive: Normal Pulmonary: Positive: Normal Cardiology: Positive: Normal Gastroenterology: Positive: Other - chronic cystitis symptoms Psychiatry: Positive: Normal Home Medications: Home Medications Medication Instructions Recorded Confirmed Type Amoxicillin/Clavulanate TAB* 875 mg PO BID 09/13/18 09/13/18 History [Augmentin TAB 875*] Amphetamine MIXED SALTS TAB* 15 mg PO DAILY PRN 09/13/18 09/13/18 History [Adderall TAB*] Hydroxypropyl Cellulose [Lacrisert] 5 mg BOTH EYES BID 09/13/18 09/13/18 History clonazePAM TAB(*) [KlonoPIN TAB(*)] 0.5 mg PO TID 09/13/18 09/13/18 History Allergies: Allergies Allergy/AdvReac Type Severity Reaction Status Date / Time cefaclor Allergy Unknown Verified 09/13/18 12:35 Reaction Details Objective - Vital Signs Vital Signs: Vital Signs 09/15/18 09/15/18 09/15/18 19:28 20:00 21:42 Temperature 100.3 F Pulse Rate 116 Respiratory 18 16 16 Rate Blood Pressure 117/62 (mmHg) O2 Sat by Pulse 97 Oximetry 09/15/18 09/15/18 09/16/18 22:11 23:56 03:18 Temperature 98.6 F 99.2 F Pulse Rate 110 90 Respiratory 18 16 18 Rate Blood Pressure 125/57 (mmHg) O2 Sat by Pulse 93 98 Oximetry 09/16/18 09/16/18 09/16/18 03:36 07:14 08:00 Temperature 98.1 F Pulse Rate 111 Respiratory 20 20 Rate Blood Pressure 115/75 109/68 (mmHg) O2 Sat by Pulse 93 Oximetry 09/16/18 09/16/18 09/16/18 08:41 08:57 10:45 Temperature 98.8 F Pulse Rate 113 Respiratory 15 22 18 Rate Blood Pressure 114/62 (mmHg) O2 Sat by Pulse 94 Oximetry 09/16/18 09/16/18 09/16/18 11:46 13:56 15:45 Temperature 97.5 F 98.6 F Pulse Rate 104 107 Respiratory 16 18 18 Rate Blood Pressure 115/73 116/70 (mmHg) O2 Sat by Pulse 96 95 Oximetry 09/16/18 09/16/18 15:51 16:00 Temperature 98.6 F Pulse Rate 107 Respiratory 18 16 Rate Blood Pressure 116/70 (mmHg) O2 Sat by Pulse 95 Oximetry - Intake and Output Intake and Output: Intake & Output 09/14/18 09/15/18 09/16/18 09/17/18 06:59 06:59 06:59 06:59 Intake Total 3305 4696 2640 640 Output Total 387 378 5430 Balance 2705 3821 465 640 Weight 190 lb Intake: IV Fluids 2200 3376 2020 400 Normal saline 1471 2020 400 all fluids 1905 IVPB 425 Pipercillin 125 Vancomycin 300 Oral 680 1320 620 240 Output: Urine 208 067 9819 Other: Estimated Void Medium Small # Bowel Movements 0 0 0 1 Estimated Stool Amount Medium # Voids 1 1 ADLs: Meal Record Start: 09/13/18 15: 42 Freq: DAILY@0900,1400,1800 Status: Active Protocol: Created 09/13/18 15:42 System (Rec: 09/13/18 15:42 System [id number]-C15) Document 09/13/18 18:00 [id number] (Rec: 09/13/18 21:55 [id number] MED-C16) Document 09/14/18 18:00 [id number] (Rec: 09/14/18 18:16 [id number] MED-C11) Document 09/15/18 09:00 [id number] (Rec: 09/15/18 11:33 [id number] MED-C11) Document 09/15/18 14:00 [id number] (Rec: 09/15/18 18:07 [id number] MED-C11) Document 09/15/18 18:00 [id number] (Rec: 09/15/18 18:23 [id number] MED-C13) Document 09/16/18 09:00 [id number] (Rec: 09/16/18 11:00 [id number] MED-C02) Document 09/16/18 14:00 [id number] (Rec: 09/16/18 15:25 [id number] MED-C09) Intake and Output Start: 09/13/18 10: 58 Freq: Status: Active Protocol: Created 09/13/18 10:58 System (Rec: 09/13/18 10:58 System ED-C24) Intake and Output Start: 09/13/18 15: 42 Freq: DAILY@0600,1400,2200 Status: Active Protocol: Created 09/13/18 15:42 System (Rec: 09/13/18 15:42 System TELE-C15) Document 09/13/18 21:55 [id number] (Rec: 09/13/18 21:57 [id number] MED-C16) Document 09/14/18 21:22 [id number] (Rec: 09/14/18 21:24 [id number] MED-C09) Document 09/15/18 06:00 [id number] (Rec: 09/15/18 07:04 [id number] MED-C11) Document 09/15/18 14:00 [id number] (Rec: 09/15/18 18:07 [id number] MED-C11) Document 09/15/18 21:44 [id number] (Rec: 09/15/18 21:44 [id number] MED-C13) Document 09/16/18 05:37 [id number] (Rec: 09/16/18 05:39 [id number] MED-C13) Document 09/16/18 14:00 [id number] (Rec: 09/16/18 15:25 [id number] MED-C09) - Physical Exam General Physical Exam Comment: NO acute distress; supine Eye Exam: bilateral: PERRLA Head: Yes Normocephalic Thyroid Function: Clinically Euthyroid Lungs and Chest: Yes: Chest Expansion Full, Chest Expansion Symetrica, Percussion Note Resonant Heart Rate and Rhythm: Regular JVP: Not Elevated [place] Beat: Non Displaced Additional Cardiovascular: Yes: [place] Beat not Displaced, Normal Heart Sounds Abdominal Exam: Yes: Soft - Rheumotological System Joints: Range of Motion - Normal; there is no synovitis of his joints - Extremities Feet Sensation: Abnormal: Sensory - Neuro Psychiatric: Normal Speech: Normal Results - Results Lab Results: Laboratory Results - last 24 hr 09/13/18 09/14/18 09/16/18 19:33 07:17 06:57 WBC 6.7 RBC 4.96 Hgb 13.9 L Hct 42 MCV 85 MCH 28 MCHC 33 RDW 14 Plt Count 298 MPV 7.5 Neut % (Auto) 40.3 Lymph % (Auto) 46.0 Starr % (Auto) 9.0 Eos % (Auto) 3.6 Baso % (Auto) 1.1 Absolute Neuts (auto) 2.7 Absolute Lymphs (auto) 3.1 Absolute Monos (auto) 0.6 Absolute Eos (auto) 0.2 Absolute Basos (auto) 0.1 Absolute Nucleated RBC 0 Nucleated RBC % 0.2 Hem Pathologist Commnt Sodium Potassium Chloride Carbon Dioxide Anion Gap BUN Creatinine Est GFR ( Amer) Est GFR (Non-Af Amer) BUN/Creatinine Ratio Glucose Calcium Ferritin CMV IgG Ab Positive A CMV IgM Ab Positive A 09/16/18 06:57 WBC RBC Hgb Hct MCV MCH MCHC RDW Plt Count MPV Neut % (Auto) Lymph % (Auto) Starr % (Auto) Eos % (Auto) Baso % (Auto) Absolute Neuts (auto) Absolute Lymphs (auto) Absolute Monos (auto) Absolute Eos (auto) Absolute Basos (auto) Absolute Nucleated RBC Nucleated RBC % Hem Pathologist Commnt Sodium 139 Potassium 3.6 Chloride 106 Carbon Dioxide 24 Anion Gap 9 BUN 4 L Creatinine 0.74 Est GFR ( Amer) 146.5 Est GFR (Non-Af Amer) 121.1 BUN/Creatinine Ratio 5.4 L Glucose 100 Calcium 8.4 L Ferritin 344.9 H CMV IgG Ab CMV IgM Ab Assessment - Problem List Assessment: Patient Problems Anxiety (Acute) DVT prophylaxis (Acute) Sepsis (Acute) Full code status (Acute) Plan: Fevers: cultures are negative. He has a pulmonic valvular lesion; agree with need to get a SOFIE. CMV IGG and IGM positive; would check PCR Possible Sjogren's: autoimmune serologies pending. Would also screen for a humoral immunodeficiency given frequent infections so IGG levels are pending. Continue antibiotics and supportive care. Coordination of Care: Yes - Reviewed with hospitalist
[2018-09-16] MEDS: Zolpidem TAB* 5 MG PO PRN (21:00)
[2018-09-16] MEDS: traZODone TAB* 100 MG PO SCH (21:00)
[2018-09-16] MEDS: Acetaminophen TAB* 325 MG PO PRN (21:02)
[2018-09-17] MEDS: Heparin VIAL(*) 5000 UNITS/ML VIAL (FIVE THOUSAND) SUBCUT SCH ×2 (06:00→13:59)
[2018-09-17 07:46] LABS: ABS Basophils 0.1 10^3/ul (0-0.2); ABS Eosinophils 0.3 10^3/ul (0-0.6); ABS Lymphocytes 2.9 10^3/ul (1.0-4.8); ABS Monocytes 0.7 10^3/ul (0-0.8); ABS Nucleated RBC 0 10^3/ul; Eosinophil % 4.3 %; Hematocrit 42 % (42-52); Hemoglobin 14.3 g/dl (14.0-18.0); Lymphocyte % 41.4 %; Mean Corpuscular HGB Conc 34 g/dl (31-36); Mean Corpuscular Hemoglobin 28 pg (27-31); Mean Corpuscular Volume 84 fL (80-94); Mean Platelet Volume 6.9 fL (7.4-10.4); Nucleated Red Blood Cells % 0.1; Platelet Count 308 10^3/ul (150-450); Red Blood Count 5.04 10^6/ul (4.00-5.40); Red Cell Distribution Width 14 % (10.5-15)
[2018-09-17] MEDS: Artificial Tear OPHTH.OINT* 3.5 GM BOTH EYES SCH (07:51)
[2018-09-17] MEDS: clonazePAM TAB(*) 0.5 MG PO SCH ×2 (07:59→13:59)
[2018-09-17 08:04] LABS: BUN/Creatinine Ratio 7.5 (8-20); Calcium 8.9 mg/dL (8.6-10.3); EGFR African American 133.9 (>60); EGFR Non-African American 110.7 (>60); Potassium 3.9 mmol/L (3.5-5.0)
[2018-09-17] MEDS ORDERED: fentaNYL* 50 MCG/ML 2 ML VIAL (100 MCG VIAL) ONE (09:13)
[2018-09-17] MEDS ORDERED: Flumazenil* 0.1 MG/ML 5 ML MDV ONE (09:13)
[2018-09-17] MEDS ORDERED: Naloxone* 0.4 MG/ML 1 ML VIAL ONE (09:13)
[2018-09-17] MEDS ORDERED: Lidocaine 2% VISCOUS* 15 ML UDC ONE (09:13)
[2018-09-17] MEDS ORDERED: Midazolam* 1 MG/ML 10 ML VIAL (10 MG) ONE (09:14)
[2018-09-17 14:39] LABS: Mitochondria M2 Antibody <0.1 U
--- NOTE | 2018-09-17 16:24 | PN ---
Progress Note - Progress Note Date of Service: 09/17/18 SOAP: Subjective: CC: fever HPI: 32 year old man with 3+ weeks of fever, malaise, initial cough; has been constipated, no rash or joint pain, some muscle pain off and on. No recent travel. CT CAP negative here. TTE pulmonic valve vegetation; not seen on SOFIE. No fever for 48 hours. Appetite is ok. No diarrhea or chills. Objective: Vital Signs Temp 36.3 C 09/17/18 14:44 Pulse 119 09/17/18 15:35 Resp 20 09/17/18 14:44 BP 111/65 09/17/18 15:35 Pulse Ox 98 09/17/18 14:44 Intake & Output 09/16/18 09/17/18 09/17/18 18:59 06:59 18:59 Intake Total 840 1140 540 Output Total 600 Balance 840 540 540 Intake: IV Fluids 400 300 Normal saline 400 Oral 440 1140 240 Output: Urine 600 Other: Date of Last Bowel unknown Movement # Bowel Movements 1 0 Estimated Stool Amount Medium Gen:awake, no distress HEENT:no thrush Heart:RRR no murmur Lungs:CTA BL Abd:+BS NTND soft Skin: no rash MSK: no spine tenderness Laboratory Results - last 24 hr 09/13/18 09/16/18 09/17/18 19:33 06:57 07:31 WBC 7.0 RBC 5.04 Hgb 14.3 Hct 42 MCV 84 MCH 28 MCHC 34 RDW 14 Plt Count 308 MPV 6.9 L Neut % (Auto) 43.3 Lymph % (Auto) 41.4 [place] % (Auto) 10.0 Eos % (Auto) 4.3 Baso % (Auto) 1.0 Absolute Neuts (auto) 3.0 Absolute Lymphs (auto) 2.9 Absolute Monos (auto) 0.7 Absolute Eos (auto) 0.3 Absolute Basos (auto) 0.1 Absolute Nucleated RBC 0 Nucleated RBC % 0.1 Cryofibrinogen Negative Sodium Potassium Chloride Carbon Dioxide Anion Gap BUN Creatinine Est GFR ( Amer) Est GFR (Non-Af Amer) BUN/Creatinine Ratio Glucose Calcium Cryoglobulin Negative Mitochondria M2 Ab <0.1 Lyme Total Antibody Positive A 09/17/18 07:31 WBC RBC Hgb Hct MCV MCH MCHC RDW Plt Count MPV Neut % (Auto) Lymph % (Auto) [place] % (Auto) Eos % (Auto) Baso % (Auto) Absolute Neuts (auto) Absolute Lymphs (auto) Absolute Monos (auto) Absolute Eos (auto) Absolute Basos (auto) Absolute Nucleated RBC Nucleated RBC % Cryofibrinogen Sodium 137 Potassium 3.9 Chloride 104 Carbon Dioxide 24 Anion Gap 9 BUN 6 Creatinine 0.80 Est GFR ( Amer) 133.9 Est GFR (Non-Af Amer) 110.7 BUN/Creatinine Ratio 7.5 L Glucose 101 H Calcium 8.9 Cryoglobulin Mitochondria M2 Ab Lyme Total Antibody Assessment: 1. fever, improved; CMV IgM/IgG positive which I suspect is the cause of his illness ie acute CMV infection. The Lyme DMITRY is positive, WB pending, I think Lyme less likely 2. Transaminitis, likely related to #1 3. cephalosporin allergy Plan: 1. doxycycline 100 mg po twice daily while awaiting Lyme WB; expect continued slow improvement, follow up with me next week. Discussed with Dr Boyle
[2018-09-17 17:17] VITALS: BP 113/68
[2018-09-17 18:02] LABS: JO-1 Antibody <0.2 U; RNP Antibody, IgG <0.2 U; SS-A/Ro Antibody <0.2 U; SS-B/La Antibody <0.2 U; Sm (Smith) IgG Antibody <0.2 U
[2018-09-17 20:21] LABS: Immunoglobulin A 236 mg/dL (61 - 356); Immunoglobulin G 1080 mg/dL (767 - 1590); Immunoglobulin M 288 mg/dL (37 - 286)
[2018-09-17 20:39] LABS: Complement C3 164 mg/dL (75 - 175)
--- NOTE | 2018-09-18 08:39 | DS ---
DISCHARGE SUMMARY: DATE OF ADMISSION: 09/13/18 DATE OF DISCHARGE: 09/17/18 ADMITTING PROVIDER: Evangelista Boyle MD. PRIMARY CARE PROVIDER: [facility] (Evangelista Boyle MD). CONSULTING INFECTIOUS DISEASE SPECIALIST: Ashish Foley MD. CONSULTING SENIOR PLANNING MANAGER: Randy Medellin MD. CHIEF COMPLAINT: Three weeks of intermittent high fevers up to as high as 103, lightheadedness, dizziness, fatigue, occasional right flank pain, semi- productive cough, subjective shortness of breath. 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 Previous workup was suspected seronegative Sjogren's syndrome (had been on Plaquenil for about 4 years total, but stopped between 18 and 24 months ago). Please see H and P for full details , but briefly, 3 weeks prior to admission, he developed high fevers up to 103.6 with headaches in the morning that were throbbing. He was dizzy and almost lost balance several times, had to cancel 3 of his classes. He eventually, a week prior to admission went to [facility] for the second time and got Augmentin without improvement of his symptoms and had high fever again to 103 day prior to admission., so evaluated by Dr. Boyle at the [facility], found to be febrile to 101.2, tachycardiac to 120 and generally unwell appearing and was referred to the ED for further evaluation. Initial workup in the ED included CBC with no leukocytosis, white count 8.1 and some modestly elevated CRP level of 26.6. He is febrile and tachy in the 120s to 130s. He had transaminitis, AST 83, ALT 99, alk phos 147. He had urinalysis, not concerning for infection. Blood cultures were drawn. Chest x-ray with no acute cardiopulmonary disease. He was referred to hospitalist service for admission for sepsis and fever of unknown origin. His EKG initially showed some Qs and T wave inversions inferiorly and S in lead 1, so D-dimer was checked and found to be elevated to 719. Given his subjective shortness of breath and recount of some calf discomfort night prior, CT angiogram chest was performed with also requested capture of the abdominal and pelvic regions as well. This showed no evidence of pulmonary embolism. There was some note of some mild right pelviectasis and some diverticulosis without diverticulitis. The dependent lower lobe opacity were likely atelectasis, though superimposed infection could not be excluded. There was 2 small hepatic hypodensities, too small to characterize, but likely small cysts or hemangiomas. Dr. Medellin was consulted in the ED as the patient previously had seen him in 2016 and given the relatively unremarkable initial infectious workup, there was concern for a connective tissue disease flare and multiple studies were requested. Unfortunately almost all of those were send outs to the [facility] and they are just now trickling in on the day of discharge. He was empirically started on Zosyn and vancomycin initially and this was stopped on the morning of hospital day 2. Fevers and tachycardia continued and the patient ultimately got a transthoracic echocardiogram 09/16/18 HD#4, which was concerning for possible pulmonic valve vegetation. Follow-up SOFIE was performed on 09/17/[address] Isabel, which did not show any vegetations and showed preserved ejection fraction, no significant valvular disease. Ultimately, his CMV IgM and IgG returned positive and acute CMV infection was considered a strong possibility explaining his signs and symptoms. CMV PCR drawn but still pending. Also, the Lyme antibody test has just returned positive, and Western blot is pending. He is being discharged on empiric doxycycline until Western blot returns with close followup with Dr. Boyle and Dr. Foley planned. He has been afebrile now for 48 hours, though tachycardia continues. LAB STUDIES Include: 1. Hepatitis A, (nonreactive). 2. Hepatitis B antibody not immune, hepatitis B surface antigen nonreactive, hepatitis B core IgM antibody nonreactive. 3. Hepatitis C antibody, nonreactive. 4. HIV 1 and 2 antibody, nonreactive. 5. Influenza A and B, negative. 6. Group A strep rapid, negative. 7. Q fever antibodies are pending. 8. Complement C3 within normal limits at 164. Complement C4 upper limit at 52 , upper limit normal OF 40. Total complement CH50 is pending. 9. ESR 8, within normal limits. 10. Cryofibrinogen, negative. 11. INR 1.09. 12. Lactic acid 1.1. 13. TSH 0.97. 14. Rheumatoid factor less than 10. 15. CRUZ (antinuclear antibody) pending. 16. Proteinase 3 less than 0.2, within normal limits. 17. Myeloperoxidase antibody less than 0.2, within normal limits. 18. Arabella-1 antibody less than 0.2, within normal limits. 19. SSA/Ro antibody less than 0.2, within normal limits. 20. SS-B/La antibody less than 0.2, within normal limits. 21. Garcia IgG antibody less than 0.2, within normal limits. 22. TRAINING REPRESENTATIVE IgG antibody less than 0.2, within normal limits. 23. Scleroderma 70 antibody less than 0.2, within normal limits. 24. Anti-double stranded DNA IgG antibody less than 12.3, within normal limits. 25. Mitochondrial M2 antibody less than 0.1, within normal limits. 26. IgG 1080, within normal limits. 27. IgA 236, within normal limits. 28. IgM 288, elevated. He also had of note a gallbladder ultrasound, ordered by Dr. Medellin, given the transaminitis and there was no cholelithiasis or other features of acute cholecystitis. DISCHARGE MEDICATIONS: Include: 1. Adderall 15 mg p.o. daily. 2. Klonopin 0.5 mg p.o. t.i.d. 3. Doxycycline 100 mg p.o. b.i.d. for 14 tabs or until either call to cease or extend pending Lyme disease, Western blot studies. 4. Hydroxypropyl cellulose 5 mL/5 mg both eyes b.i.d. FOLLOWUP: Please follow up with Dr. Boyle at the [facility] early next week, 09/23/18. He also should follow up with Dr. Larry Foley within 1 to 2 weeks. He plans to re-establish with Dr. Medellin as well. DISCHARGE DIET: No restrictions. TIME SPENT: On discharge, 50 minutes. [id number]/[facility] #: [id number] OSIRIS
[2018-09-19 17:23] LABS: Lyme Disease IgG Ab WB Negative (Negative); Lyme Disease IgG Bands Present p41 kDa
== END 2018-09-17 17:00 | disposition home or self-care (01) | DRG 720 ==
LOC: ED 10:52 → MED 13:32
PROVIDERS: ADMIT Internal Medicine; ATTEND Internal Medicine
DX: A41.9 Sepsis, unspecified organism (principal); B25.9 Cytomegaloviral disease, unspecified; N30.10 Interstitial cystitis (chronic) without hematuria; I73.00 Raynaud's syndrome without gangrene; F90.9 Attention-deficit hyperactivity disorder, unspecified type; R50.9 Fever, unspecified; M35.00 Sjogren syndrome, unspecified; M35.9 Systemic involvement of connective tissue, unspecified; F41.9 Anxiety disorder, unspecified; M06.1 Adult-onset Still's disease; R74.0 Nonspecific elevation of levels of transaminase and lactic acid dehydrogenase [LDH]; G89.29 Other chronic pain; K59.00 Constipation, unspecified; Z79.899 Other long term (current) drug therapy; Z88.8 Allergy status to other drugs, medicaments and biological substances; Z83.3 Family history of diabetes mellitus; Z80.0 Family history of malignant neoplasm of digestive organs
CPT/HCPCS: 36415; 70480; 71046; 71275; 74177; 76705; 80048; 80053; 80074; 80076; 80202; 80307; 81003; 82550; 82565; 82585; 82595; 82728; 82784; 83516; 83605; 84443; 84484; 84520; 85025; 85060; 85379; 85610; 85652; 85730; 86038; 86140; 86160; 86162; 86225; 86235; 86431; 86617; 86618; 86638; 86644; 86645; 86703; 86706; 87040; 87070; 87205; 87497; 87641; 87651; 87899; 93005; 93306; 93312; 93325; 99156; 99284; A9270-GY; J0744; J1644; J2250; J2310; J2543; J3010; J3370